=== PATIENT | female | born 1950 | race Caucasian/White ===

== ENCOUNTER 2018-06-01 16:32 | Observation (INO) | payer OTHER ==
[2018-06-01 16:59] VITALS: BMI 32.9
--- NOTE | 2018-06-01 17:37 | PDOC ---
History of Present Illness - General Chief Complaint: Weakness Stated Complaint: WEAKNESS DIZZINESS Time Seen by Provider: 06/01/18 17:35 - History of Present Illness Initial Comments: 06/01/18 17:37 Ms. Ojeda is a 67 yo female w/ pmh of HTN, HLD, Bipolar Disorder, and DM who presents for evaluation of increasing weakness and dizziness that resulted in a fall earlier today. Per family who is with her she was caught by a family member and did not hit her head or lose consciousness. Patient currently at baseline however family replies she is often forgetful / confused. Patient reports she is often dizzy however cannot expand upon this statement. Has been found to have lithium toxicity in the past; now on different medication for Bipolar Disorder however unknown what medication. The patient denies chest pain, shortness of breath, and headache. Denies fever, chills, nausea, vomit, diarrhea and constipation. Denies dysuria, frequency, urgency and hematuria. Past History - Past Medical History Allergies/Adverse Reactions: Allergies Allergy/AdvReac Type Severity Reaction Status Date / Time No Known Allergies Allergy Verified 01/25/15 12:35 Home Medications: Ambulatory Orders [place] Carbonate [Eskalith -] 600 mg PO HS 01/25/15 Losartan Potassium 100 mg PO DAILY 01/25/15 Simvastatin [Zocor -] 40 mg PO HS 01/25/15 metFORMIN HCL [Glucophage] 1,000 mg PO DAILY 01/25/15 COPD: No Diabetes: Yes - Suicide/Smoking/Psychosocial Hx Smoking History: Never smoked Have you smoked in the past 12 months: No Information on smoking cessation initiated: No Hx Alcohol Use: No Drug/Substance Use Hx: No Review of Systems - Review of Systems Comments:: 06/01/18 17:37 GENERAL/CONSTITUTIONAL: +Generalized weakness with dizziness as described. No fever or chills. HEAD, EYES, EARS, NOSE AND THROAT: No change in vision. No ear pain or discharge. No sore throat. CARDIOVASCULAR: No chest pain or shortness of breath RESPIRATORY: No cough, wheezing, or hemoptysis. GASTROINTESTINAL: No nausea, vomiting, diarrhea or constipation. GENITOURINARY: No dysuria, frequency, or change in urination. MUSCULOSKELETAL: No joint or muscle swelling or pain. No neck or back pain. SKIN: No rash NEUROLOGIC: No headache, vertigo, or loss of consciousness. ENDOCRINE: No increased thirst. No abnormal weight change HEMATOLOGIC/LYMPHATIC: No anemia, easy bleeding, or history of blood clots. ALLERGIC/IMMUNOLOGIC: No hives or skin allergy. *Physical Exam - Vital Signs Last Vital Signs Temp Pulse Resp BP Pulse Ox 98.9 F 81 18 150/71 96 06/01/18 16:57 06/01/18 16:57 06/01/18 16:57 06/01/18 16:57 06/01/18 16:57 - Physical Exam Comments: 06/01/18 17:38 GENERAL: Awake, alert, and fully oriented, in no acute distress HEAD: No signs of trauma, normocephalic, atraumatic EYES: PERRLA, EOMI, sclera anicteric, conjunctiva clear ENT: Auricles normal inspection, hearing grossly normal, nares patent, oropharynx clear without exudates. Moist mucosa NECK: Normal ROM, supple, no lymphadenopathy, JVD, or masses LUNGS: No distress, speaks full sentences, clear to auscultation bilaterally HEART: Regular rate and rhythm, normal S1 and S2, no murmurs, rubs or gallops, peripheral pulses normal and equal bilaterally. ABDOMEN: Soft, nontender, normoactive bowel sounds. No guarding, no rebound. No masses EXTREMITIES: Normal inspection, Normal range of motion, no edema. No clubbing or cyanosis. NEUROLOGICAL: Cranial nerves II through XII grossly intact. Normal speech, normal gait, no focal sensorimotor deficits SKIN: Warm, Dry, normal turgor, no rashes or lesions noted. Moderate Sedation - Procedure Monitoring Vital Signs: Procedure Monitoring Vital Signs Temperature 98.9 F 06/01/18 16:57 Pulse Rate 81 06/01/18 16:57 Respiratory Rate 18 06/01/18 16:57 Blood Pressure 150/71 06/01/18 16:57 O2 Sat by Pulse Oximetry (%) 96 06/01/18 16:57 ED Treatment Course - LABORATORY CBC & Chemistry Diagram: 06/01/18 18:47 06/01/18 18:47 Medical Decision Making - Medical Decision Making 06/01/18 18:26 Ms. Ojeda is a 67 yo female w/ pmh as described who presents for evaluation of chronic worsening weakness / dizziness with recent fall. Workup started with EKG/cardiac labs/infectious labs/electrolyte analysis/chest XR and head CT to r/ o acute process. 06/01/18 18:50 CXR negative for acute process. Further workup pending. Patient signed out to Dr. Valle for further evaluation. *DC/Admit/Observation/Transfer Diagnosis at time of Disposition: Weakness, Dizziness - Referrals Referrals: Richie Aviles [Primary Care Provider] - - Patient Instructions - Post Discharge Activity
[2018-06-01 19:09] LABS: BASO % 0.5 % (0-2.0); EOS % 1.6 % (0-4.5); HEMATOCRIT 42.6 % (32.4-45.2); HEMOGLOBIN 14.8 GM/dL (10.7-15.3); LYMPH % 16.2 % (8-40); MCH 31.1 pg (25.7-33.7); MCHC 34.8 g/dl (32.0-36.0); MEAN CELL VOLUME 89.2 fl (80-96); NEUT % 72.7 % (42.8-82.8); PLATELET COUNT 185 K/MM3 (134-434); RBC 4.78 M/mm3 (3.60-5.2); RDW 13.8 % (11.6-15.6); WHITE BLOOD COUNT 6.7 K/mm3 (4.0-10.0)
[2018-06-01 19:27] LABS: ALBUMIN 3.7 g/dl (3.4-5.0); ALK PHOS 90 U/L (45-117); ANION GAP 10 MMOL/L (8-16); BILIRUBIN,TOTAL 0.5 mg/dL (0.2-1); BLOOD UREA NITROGEN 28 mg/dL (7-18); CALCIUM 9.2 mg/dL (8.5-10.1); CHLORIDE 104 mmol/L (98-107); CO2 23 mmol/L (21-32); CREATININE 1.2 mg/dL (0.55-1.3); GLUCOSE,RANDOM 269 mg/dL (74-106); POTASSIUM 3.8 mmol/L (3.5-5.1); SGOT/AST 57 U/L (15-37); SGPT/ALT 72 U/L (13-61); SODIUM 137 mmol/L (136-145); TOT PROT 7.8 g/dl (6.4-8.2)
--- NOTE | 2018-06-01 20:29 | PDOC ---
Attending Attestation - [facility] [employer] [facility] HPI: 06/01/18 20:50 The patient is a 67 year old female with a significant past medical history of hypertension, hyperlipidemia, and bipolar disorder who presents to the emergency department with weakness since earlier today. The patient reports that she has been experiencing increased weakness and dizziness s/p a fall earlier today. As per the patient's family at bedside, the patient was caught before she hit the floor and denies any loc or head injury. The patient denies any other symptoms. As per family the patient was recently put on new medication for her bipolar disorder. - Physicial Exam PE: 06/01/18 20:50 GENERAL: Well developed, well nourished. Awake and alert. No acute distress. HEENT:(+)hard of hearing. Normocephalic, atraumatic. PERRLA, EOMI. No conjunctival pallor. Sclera are non- icteric. Moist mucous membranes. Oropharynx is clear. NECK: Supple. Full ROM. No JVD. Carotid pulses 2+ and symmetric, without bruits. No thyromegaly. No lymphadenopathy. CARDIOVASCULAR: Regular rate and rhythm. No murmurs, rubs, or gallops. Distal pulses are 2+ and symmetric. PULMONARY: No evidence of respiratory distress. Lungs clear to auscultation bilaterally. No wheezing, rales or rhonchi. ABDOMINAL:(+)turbulent belly Soft. Non-tender. Non-distended. No rebound or guarding. No organomegaly. Normoactive bowel sounds. MUSCULOSKELETAL Normal range of motion at all joints. No bony deformities or tenderness. No CVA tenderness. EXTREMITIES: (+)excoriation of bilateral forarms and lower legs. No cyanosis. No clubbing. No edema. No calf tenderness. SKIN: Warm and dry. Normal capillary refill. No rashes. No jaundice. NEUROLOGICAL: (+)delayed response to questions. Alert, awake, appropriate. Cranial nerves 2-12 intact. No deficits to light touch and temperature in face, upper extremities and lower extremities. No motor deficits in the in face, upper extremities and lower extremities. Normoreflexic in the upper and lower extremities. Normal speech. Toes are down- going bilaterally. PSYCHIATRIC: Cooperative. Good eye contact. Appropriate mood and affect. Documentation prepared by Tameka Ponce, acting as medical coding auditor for Britta Hicks MD. <Tameka Ponce - Last Filed: 06/01/18 20:50> - Resident Resident Name: Sammy Sutton - ED Attending Attestation I have performed the following: I have examined & evaluated the patient, The case was reviewed & discussed with the resident, I agree w/resident's findings & plan, Exceptions are as noted - Medical Decision Making 06/01/18 22:08 pt being admitted for near syncope ct scan head no acute intracranial pathology neg trop pt states she feels weak but denies any chest pain,abd pain,fever,chills pt admitted to telemetry <Britta Hicks - Last Filed: 06/01/18 22:09>
[2018-06-01] MEDS ORDERED: ALBUTEROL SO4 8 GM HFA INHALER IH PRN (21:20)
[2018-06-01] MEDS ORDERED: DOCUSATE SODIUM 100 MG CAPSULE (FP) PO PRN (21:20)
--- NOTE | 2018-06-01 21:26 | HP ---
CHIEF COMPLAINT: weakness PCP: Dr. Aviles HISTORY OF PRESENT ILLNESS: 67 y/o F with PMH HTN, HLD, bipolar disorder, DM, who presented to the ED for chronic weakness, exacerbated over the last few months. States that she has had chronic gait instability ever since 2014, when she was dx with [place] toxicity. At that time, she had come to [facility] ED with ataxia and slurred speech and was found to have a lithium level that increased from 0.9 to 1.4. [place] was d/c and she was started on depakote for her bipolar disorder. States that in the interim, she saw a neurologist (Dr. Link) and had a brain MRI done, however she does not know the result. Today, pt has returned to the ED d/t instance today of increased weakness while ambulating. She states that she was in her home ambulating down the hallway when she felt unsteady, having to lean on her daughter. Mentions that she ambulated to the bathroom with her assistance, however when she reached it, her daughter needed to "let her down slowly" to sit on the bathroom floor because she couldn't ambulate any further. No syncopal episode. Denies witnessed sz like activity, palpitations, post- ictal confusion, head trauma, LOC, or chest pain/dizziness. Never fell. Denies KING, fever, chills, SOB, chest pain. She has had urinary incontinence over the past year, and had a urological procedure done for this reason - states she had implants placed in her backside. ER course was notable for: (1) EKG: RBBB, PACs - no acute change from prior (2) (3) Recent Travel: denies PAST MEDICAL HISTORY: as above PAST SURGICAL HISTORY: R ankle repair Social History: used to work as a home health aid Smoking: denies Alcohol: denies Drugs: denies Family History: father- DM Allergies No Known Allergies Allergy (Verified 01/25/15 12:35) HOME MEDICATIONS: Home Medications Medication Instructions Recorded Losartan Potassium 50 mg PO DAILY 01/25/15 Simvastatin [Zocor -] 40 mg PO HS 01/25/15 metFORMIN HCL [Glucophage] 1,000 mg PO HS 01/25/15 Albuterol Sulfate Inhaler - 2 inh PO Q4H PRN 06/01/18 [Ventolin Hfa Inhaler -] Divalproex [Depakote -] 1,000 mg PO HS 06/01/18 Docusate Sodium 100 mg PO DAILY PRN 06/01/18 Glipizide Xl [Glucotrol Xl -] 5 mg PO DAILY 06/01/18 Meds have been verified by 's list REVIEW OF SYSTEMS CONSTITUTIONAL: +weakness Absent: fever, chills, diaphoresis, generalized weakness, malaise, loss of appetite, weight change HEENT: Absent: rhinorrhea, nasal congestion, throat pain, throat swelling, difficulty swallowing, mouth swelling, ear pain, eye pain, visual changes CARDIOVASCULAR: Absent: chest pain, syncope, palpitations, irregular heart rate, lightheadedness , peripheral edema RESPIRATORY: Absent: cough, shortness of breath, dyspnea with exertion, orthopnea, wheezing, stridor, hemoptysis GASTROINTESTINAL: Absent: abdominal pain, abdominal distension, nausea, vomiting, diarrhea, constipation, melena, hematochezia GENITOURINARY: +urinary incontinence Absent: dysuria, frequency, urgency, hesitancy, hematuria, flank pain, genital pain MUSCULOSKELETAL: Absent: myalgia, arthralgia, joint swelling, back pain, neck pain SKIN: Absent: rash, itching, pallor HEMATOLOGIC/IMMUNOLOGIC: Absent: easy bleeding, easy bruising, lymphadenopathy, frequent infections ENDOCRINE: Absent: unexplained weight gain, unexplained weight loss, heat intolerance, cold intolerance NEUROLOGIC: Absent: headache, focal weakness or paresthesias, dizziness, unsteady gait, seizure, mental status changes, bladder or bowel incontinence PSYCHIATRIC: Absent: anxiety, depression, suicidal or homicidal ideation, hallucinations. PHYSICAL EXAMINATION Vital Signs - 24 hr 06/01/18 16:57 Temperature 98.9 F Pulse Rate 81 Respiratory 18 Rate Blood Pressure 150/71 O2 Sat by Pulse 96 Oximetry (%) GENERAL: Lying down comfortably in bed. Awake, alert, and fully oriented, in no acute distress. HEAD: Normal with no signs of trauma. +L facial droop; chronic EYES: Pupils equal, round and reactive to light, extraocular movements intact, sclera anicteric, conjunctiva clear. No lid lag. EARS, NOSE, THROAT: Ears normal, nares patent, oropharynx clear without exudates. Moist mucous membranes. NECK: Normal range of motion, supple LUNGS: Breath sounds equal, clear to auscultation bilaterally. No wheezes, and no crackles. No accessory muscle use. HEART: Regular rate and rhythm, normal S1 and S2 without murmur, rub or gallop. ABDOMEN: Soft, obese, nontender, not distended, normoactive bowel sounds, no guarding UPPER EXTREMITIES: 2+ pulses, warm, well-perfused. +scratches LOWER EXTREMITIES: 2+ pt pulses, warm, well-perfused. +scratches NEUROLOGICAL: Cranial nerves II-XII intact. +chronically delayed speech, difficulty with articulation. 4/5 motor strength in upper and lower extremities. sensation intact. no dysmetria, no dysdiadokinesia. +upper extremities - w/tremor PSYCHIATRIC: Cooperative. Good eye contact. SKIN: Warm, dry Laboratory Results - last 24 hr 06/01/18 06/01/18 18:47 18:47 WBC 6.7 RBC 4.78 Hgb 14.8 Hct 42.6 MCV 89.2 MCH 31.1 MCHC 34.8 RDW 13.8 Plt Count 185 D MPV 9.0 Absolute Neuts (auto) 4.8 Neutrophils % 72.7 Lymphocytes % 16.2 Monocytes % 9.0 D Eosinophils % 1.6 Basophils % 0.5 Nucleated RBC % 0 Sodium 137 Potassium 3.8 Chloride 104 Carbon Dioxide 23 Anion Gap 10 BUN 28 H Creatinine 1.2 Creat Clearance w eGFR 45.09 Random Glucose 269 H Calcium 9.2 Total Bilirubin 0.5 AST 57 H ALT 72 H Alkaline Phosphatase 90 Creatine Kinase 60 Troponin I < 0.02 Total Protein 7.8 Albumin 3.7 TESTS EKG: with PAC's, RBBB. no acute change from prior Head CT: bilateral frontoparietal cerebral atrophy mildly increased in comparison to prior CT of 2014. corresponding mildly increased ventricular dilation which currently appears to be moderate ASSESSMENT/PLAN: 67 y/o F with PMH HTN, HLD, bipolar disorder, DM, who presented to the ED for chronic weakness, exacerbated over the last few months. #Generalized weakness, ataxia -appears to be chronic issue. has had brain MRI in past, however does not know the result. -would recommend retrieving past brain MRI result- Dr. Link [place] on [facility] -may be 2/2 normal pressure hydrocephalus as with increased ventricular dilation from past, urinary incontinence, ataxia -cont to hold lithium; had past lithium toxicity which caused these sx. has been on depakote -neuro consult; Dr. Lauren -reversible causes: f/u TSH, b12, folate, rpr, ua -physical therapy #transaminitis -no evident etiology, will need to investigate. hep serologies f/u -hold lipitor -f/u CMP, abdom sono #HTN- uncontrolled -c/w losartan #HLD -hold lipitor d/t transaminitis #Type 2 DM -ISS, BGM ACHS -hold metformin, glipizide. can restart on d/c -f/u A1c #bipolar disorder -c/w depakote #f/e/n encourage PO intake; no need for IVF at this time continue to follow lytes diabetic, sodium controlled diet #ppx DVT: SCD's, expect short stay #dispo observation. will be seen by neurology, may be able to d/c tomorrow once outpt plan developed and seen by PT Visit type - Emergency Visit Emergency Visit: Yes ED Registration Date: 06/01/18 Care time: The patient presented to the Emergency Department on the above date and was hospitalized for further evaluation of their emergent condition. - New Patient This patient is new to me today: Yes Date on this admission: 06/02/18 - Critical Care Critical Care patient: No
--- NOTE | 2018-06-01 21:33 | PN ---
Teaching Attending Note Name of Resident: Nataliya Ni ATTENDING PHYSICIAN STATEMENT I saw and evaluated the patient. I reviewed the resident's note and discussed the case with the resident. I agree with the resident's findings and plan as documented. SUBJECTIVE: This is a 67 year old woman with a history of HTN, hyperlipidemia, type 2 DM, bipolar disorder who comes to the ED complaining of worsening weakness and difficulty walking. She says that today while walking in the hallway, she became unsteady and thought she was going to fall. She was assisted by her daughter and she says she lowered herself to the floor. She denies loss of consciousness. In 2014, she had difficulty walking and slurred speech which was attributed to lithium toxicity. Bibo was changed to Depakote at that time. She also reports that she "leaks urine" for the past year. She has had an MRI of the brain as part of the workup for her symptoms but she is unaware of the results. OBJECTIVE: Vital Signs Period Temp Pulse Resp BP Sys/[place] Pulse Ox Last 24 Hr 98.9 F 81 18 150/71 96 HEART: S1S2, RRR, PACs LUNGS: Clear ABDOMEN: Soft, non-tender, non-distended, normal BS EXTREMITIES: No edema NEUROLOGICAL: Alert, oriented, slow to respond, strength 4/5 in all extremities , DTRs symmetric, sensation intact, no pronator drift, no dysdiadochokinesis Laboratory Tests 06/01/18 06/01/18 18:47 18:47 WBC 6.7 RBC 4.78 Hgb 14.8 Hct 42.6 MCV 89.2 MCH 31.1 MCHC 34.8 RDW 13.8 Plt Count 185 D MPV 9.0 Absolute Neuts (auto) 4.8 Neutrophils % 72.7 Lymphocytes % 16.2 Monocytes % 9.0 D Eosinophils % 1.6 Basophils % 0.5 Nucleated RBC % 0 Sodium 137 Potassium 3.8 Chloride 104 Carbon Dioxide 23 Anion Gap 10 BUN 28 H Creatinine 1.2 Creat Clearance w eGFR 45.09 Random Glucose 269 H Calcium 9.2 Total Bilirubin 0.5 AST 57 H ALT 72 H Alkaline Phosphatase 90 Creatine Kinase 60 Troponin I < 0.02 Total Protein 7.8 Albumin 3.7 Home Medications Medication Instructions Recorded Losartan Potassium 50 mg PO DAILY 01/25/15 Simvastatin [Zocor -] 40 mg PO HS 01/25/15 metFORMIN HCL [Glucophage] 1,000 mg PO HS 01/25/15 Albuterol Sulfate Inhaler - 2 inh PO Q4H PRN 06/01/18 [Ventolin Hfa Inhaler -] Divalproex [Depakote -] 1,000 mg PO HS 06/01/18 Docusate Sodium 100 mg PO DAILY PRN 06/01/18 Glipizide Xl [Glucotrol Xl -] 5 mg PO DAILY 06/01/18 ASSESSMENT AND PLAN: This is a 67 year old woman with a history of HTN, hyperlipidemia, type 2 DM, bipolar disorder who presented to the ED with weakness and difficulty walking. 1. Weakness with unsteady gait, confusion, possible urinary incontinence - Place in observation - CT shows bilateral frontoparietal cerebral atrophy with moderate ventricular dilatation - Recently had MRI - will obtain results - Check TSH, B12, folate, RPR, UA - Neuro consult - PT eval 2. Hepatic transaminitis - Check hepatitis panel, RUQ US - Hold Zocor - Monitor LFTs 3. HTN - Continue Cozaar 4. Hyperlipidemia - Hold Zocor secondary to transaminitis 5. Type 2 DM - Hold metformin, glipizide - Fingersticks with Novolog sliding scale - Check HbA1c 6. Bipolar disorder - Continue Depakote
[2018-06-01] MEDS ORDERED: ATORVASTATIN CA 10 MG TABLET (FP) ONE (21:58)
[2018-06-01] MEDS ORDERED: DIVALPROEX SODIUM 500 MG TABLET E.C. ONE (21:58)
[2018-06-01] MEDS ORDERED: INSULIN (NOVOLOG) ASPART 100 UNITS/ML 10ML VIAL ONE (21:58)
[2018-06-01] MEDS ORDERED: ATORVASTATIN CA 20 MG TABLET (FP) PO SCH (22:00)
[2018-06-01] MEDS: DIVALPROEX SODIUM 500 MG TABLET E.C. PO SCH (22:02)
[2018-06-01] MEDS: INSULIN SLIDING SCALE (NOVOLOG) 1 VIAL SQ SCH (22:03)
[2018-06-02 05:40] LABS: URINE APPEARANCE SLCLOUDY; URINE BILIRUBIN NEGATIVE (<2.0 mg/dL); URINE COLOR YELLOW; URINE GLUCOSE (UA) 3+ (NEGATIVE); URINE KETONE TRACE (NEGATIVE); URINE LEUK ESTERASE 3+ (NEGATIVE); URINE NITRITE NEGATIVE (NEGATIVE); URINE PROTEIN 1+ (NEGATIVE); URINE UROBILINOGEN NEGATIVE mg/dL (0.2-1.0)
[2018-06-02 05:43] LABS: EPI CELLS MANY /HPF (FEW); URINE BACTERIA RARE /hpf (NONE SEEN); URINE MUCUS RARE
[2018-06-02 05:51] LABS: BASO % 0.8 % (0-2.0); HEMATOCRIT 40.1 % (32.4-45.2); LYMPH % 38.7 % (8-40); MCH 31.5 pg (25.7-33.7); MEAN CELL VOLUME 89.9 fl (80-96); MONO % 9.2 % (3.8-10.2); NEUT % 47.3 % (42.8-82.8); PLATELET COUNT 150 K/MM3 (134-434); RBC 4.46 M/mm3 (3.60-5.2); RDW 14.1 % (11.6-15.6)
[2018-06-02 06:18] LABS: ALBUMIN 3.4 g/dl (3.4-5.0); ALK PHOS 81 U/L (45-117); ANION GAP 10 MMOL/L (8-16); BILIRUBIN,TOTAL 0.6 mg/dL (0.2-1); BLOOD UREA NITROGEN 25 mg/dL (7-18); CALCIUM 9.1 mg/dL (8.5-10.1); CHLORIDE 105 mmol/L (98-107); CO2 22 mmol/L (21-32); GLUCOSE,RANDOM 210 mg/dL (74-106); MAGNESIUM 1.8 mg/dL (1.8-2.4); PHOSPHOROUS 3.3 mg/dL (2.5-4.9); POTASSIUM 3.8 mmol/L (3.5-5.1); SGOT/AST 40 U/L (15-37); SGPT/ALT 58 U/L (13-61); SODIUM 138 mmol/L (136-145); TOT PROT 7.1 g/dl (6.4-8.2)
[2018-06-02] MEDS ORDERED: INSULIN (NOVOLOG) ASPART 100 UNITS/ML 10ML VIAL ONE ×3 (06:44→18:00)
[2018-06-02] MEDS: INSULIN SLIDING SCALE (NOVOLOG) 1 VIAL SQ SCH ×4 (06:55→22:35)
--- NOTE | 2018-06-02 09:50 | CON.NEURO ---
Consult - History of Present Illness History of Present Illness: 67 year old woman with a history of HTN, hyperlipidemia, type 2 DM, bipolar disorder who comes to the ED complaining of worsening weakness and difficulty walking. She says that today while walking in the hallway, she became unsteady and thought she was going to fall. She was assisted by her daughter and she says she lowered herself to the floor. She denies loss of consciousness. In 2014 , she had difficulty walking and slurred speech which was attributed to lithium toxicity. Spiro was changed to Depakote at that time. She also reports that she "leaks urine" for the past year. She has had an MRI of the brain as part of the workup for her symptoms but she is unaware of the results. spoke to son, walking described as shuffling; started on LATUDA recently --thought pt unaware when. sugars not fully controlled, UA +, TSH NL, LFTs elevated CT HD : ventricular dilattaion (unable tro view scan on PACS) - Alcohol/Substance Use Hx Alcohol Use: No - Smoking History Smoking history: Never smoked Have you smoked in the past 12 months: No Home Medications - Allergies Allergies/Adverse Reactions: Allergies Allergy/AdvReac Type Severity Reaction Status Date / Time No Known Allergies Allergy Verified 01/25/15 12:35 - Home Medications Home Medications: Ambulatory Orders Losartan Potassium 50 mg PO DAILY 01/25/15 Simvastatin [Zocor -] 40 mg PO HS 01/25/15 metFORMIN HCL [Glucophage] 1,000 mg PO HS 01/25/15 Albuterol Sulfate Inhaler - [Ventolin Hfa Inhaler -] 2 inh PO Q4H PRN 06/01/18 Divalproex [Depakote -] 1,000 mg PO HS 06/01/18 Docusate Sodium 100 mg PO DAILY PRN 06/01/18 Glipizide Xl [Glucotrol Xl -] 5 mg PO DAILY 06/01/18 Physical Exam-Neuro Vital Signs: Vital Signs Temperature 98.1 F 06/02/18 05:56 Pulse Rate 65 06/02/18 07:30 Respiratory Rate 18 06/02/18 07:30 Blood Pressure 133/67 06/02/18 07:30 O2 Sat by Pulse Oximetry (%) 97 06/02/18 07:30 Labs: CBC, BMP 06/02/18 05:18 06/02/18 05:18 - Neuro Exam Level Of Consciousness: Yes: Alert (awake, flat affect and somewhat slow to respond, [place], no facial, motor 5/5, no tremor , no sig inc tone in LE , plantars dwn, gait shffuling, magnetic ) Problem List - Problems (1) Gait abnormality Code(s): R26.9 - UNSPECIFIED ABNORMALITIES OF GAIT AND MOBILITY (2) Hydrocephalus Code(s): G91.9 - HYDROCEPHALUS, UNSPECIFIED (3) Weakness Code(s): R53.1 - WEAKNESS (4) UTI (urinary tract infection) Code(s): N39.0 - URINARY TRACT INFECTION, SITE NOT SPECIFIED Assessment/Plan 67 year old woman with a history of HTN, hyperlipidemia, type 2 DM, bipolar disorder who comes to the ED complaining of worsening weakness and difficulty walking. She says that today while walking in the hallway, she became unsteady and thought she was going to fall. She was assisted by her daughter and she says she lowered herself to the floor. She denies loss of consciousness. In 2014 , she had difficulty walking and slurred speech which was attributed to lithium toxicity. Spiro was changed to Depakote at that time. She also reports that she "leaks urine" for the past year. She has had an MRI of the brain as part of the workup for her symptoms but she is unaware of the results. sugars not fully controlled, UA +, TSH NL, LFTs elevated CT HD : ventricular dilatation (unable tro view scan on PACS) AP : signs and Sx suggestive of NPH, cogntive issues, gait ABNL and incontence, may also be decompensation from DM neuropathy and UTI DM Control ABX for UTI check MRI BRAIN will need LP and re-eval pre and post tap from rehab -gait reassessment will try in AM NEUROSURGERY consult thereafter PSYCH FU PRN FU LFTS issue -PMD STEVE [facility] DR ADAMS
--- NOTE | 2018-06-02 09:56 | EKG ---
Test Reason : Blood Pressure : / mmHG Vent. Rate : 082 BPM Atrial Rate : 082 BPM P-R Int : 170 ms QRS Dur : 118 ms QT Int : 414 ms P-R-T Axes : 064 -75 074 degrees QTc Int : 483 ms SINUS RHYTHM WITH PREMATURE ATRIAL COMPLEXES LEFT AXIS DEVIATION RIGHT BUNDLE BRANCH BLOCK INFERIOR INFARCT (CITED ON OR BEFORE 25-JAN-2015) CANNOT RULE OUT ANTERIOR INFARCT (CITED ON OR BEFORE 25-JAN-2015) ABNORMAL ECG WHEN COMPARED WITH ECG OF 25-JAN-2015 13:23, PREMATURE ATRIAL COMPLEXES ARE NOW PRESENT VENT. RATE HAS INCREASED BY 35 BPM RIGHT BUNDLE BRANCH BLOCK IS NOW PRESENT Confirmed by BEN HAWKINS, LENNY ([id number]) on 06/02/2018 9:56:01 AM Referred By: Confirmed By:LENNY CONTRERAS MD
[2018-06-02] MEDS: LOSARTAN POTASSIUM 50 MG TABLET (FP) PO SCH (10:49)
--- NOTE | 2018-06-02 15:05 | PN ---
Physical Exam: SUBJECTIVE: Patient seen and examined at bedside this morning. She endorses weakness, however denies any acute complaints today. Denies subjective fevers, chills, shortness of breath, chest pain, palpitations, abdominal pain, nausea, vomiting. OBJECTIVE: Vital Signs Period Temp Pulse Resp BP Sys/Vill[place] Pulse Ox Last 24 Hr 98.1 F-98.9 F 56-81 18-18 133-150/64-76 95-97 GENERAL: The patient is awake, alert, and oriented to person, place, and time in no acute distress. HEAD: Normocephalic, atraumatic. EYES: PERRL, extraocular movements intact, sclera anicteric. ENT: Oropharynx clear without exudates, moist mucous membranes. NECK: Supple without lymphadenopathy LUNGS: Breath sounds equal, clear to auscultation bilaterally, no wheezes, no crackles, no accessory muscle use. HEART: Regular rate and rhythm, S1, S2 without murmur, rub or gallop. ABDOMEN: Soft, nontender to light and deep palpation X4 quadrants, nondistended. Normoactive bowel sounds. No guarding, no rebound tenderness. EXTREMITIES: 2+ radial and dorsalis pedis pulses B/L, warm, well-perfused, no edema. NEUROLOGICAL: Cranial nerves II through XII grossly intact. Normal speech. PSYCH: Flat affect, and slow response to conversation. SKIN: Warm, dry. Laboratory Results - last 24 hr 06/01/18 06/01/18 06/01/18 10:15 18:47 18:47 WBC 6.7 RBC 4.78 Hgb 14.8 Hct 42.6 MCV 89.2 MCH 31.1 MCHC 34.8 RDW 13.8 Plt Count 185 D MPV 9.0 Absolute Neuts (auto) 4.8 Neutrophils % 72.7 Lymphocytes % 16.2 Monocytes % 9.0 D Eosinophils % 1.6 Basophils % 0.5 Nucleated RBC % 0 Sodium 137 Potassium 3.8 Chloride 104 Carbon Dioxide 23 Anion Gap 10 BUN 28 H Creatinine 1.2 Creat Clearance w eGFR 45.09 Random Glucose 269 H Hemoglobin A1c % Calcium 9.2 Phosphorus Magnesium Total Bilirubin 0.5 AST 57 H ALT 72 H Alkaline Phosphatase 90 Creatine Kinase 60 Troponin I < 0.02 Total Protein 7.8 Albumin 3.7 Vitamin B12 652 Serum Folate 19 H TSH 1.90 Urine Color Urine Appearance Urine pH Ur Specific [place] Urine Protein Urine Glucose (UA) Urine Ketones Urine Blood Urine Nitrite Urine Bilirubin Urine Urobilinogen Ur Leukocyte Esterase Urine WBC (Auto) Urine RBC (Auto) Ur Epithelial Cells Urine Bacteria Urine Mucus RPR Titer Nonreactive 06/01/18 06/02/18 06/02/18 18:47 05:18 05:18 WBC 6.0 RBC 4.46 Hgb 14.0 Hct 40.1 MCV 89.9 MCH 31.5 MCHC 35.0 RDW 14.1 Plt Count 150 MPV 8.0 D Absolute Neuts (auto) 2.8 Neutrophils % 47.3 D Lymphocytes % 38.7 D Monocytes % 9.2 Eosinophils % 4.0 D Basophils % 0.8 Nucleated RBC % 0 Sodium 138 Potassium 3.8 Chloride 105 Carbon Dioxide 22 Anion Gap 10 BUN 25 H Creatinine 1.0 Creat Clearance w eGFR 55.64 Random Glucose 210 H Hemoglobin A1c % 9.5 H Calcium 9.1 Phosphorus 3.3 Magnesium 1.8 Total Bilirubin 0.6 AST 40 H ALT 58 Alkaline Phosphatase 81 Creatine Kinase Troponin I Total Protein 7.1 Albumin 3.4 Vitamin B12 Serum Folate TSH Urine Color Urine Appearance Urine pH Ur Specific [place] Urine Protein Urine Glucose (UA) Urine Ketones Urine Blood Urine Nitrite Urine Bilirubin Urine Urobilinogen Ur Leukocyte Esterase Urine WBC (Auto) Urine RBC (Auto) Ur Epithelial Cells Urine Bacteria Urine Mucus RPR Titer 06/02/18 05:30 WBC RBC Hgb Hct MCV MCH MCHC RDW Plt Count MPV Absolute Neuts (auto) Neutrophils % Lymphocytes % Monocytes % Eosinophils % Basophils % Nucleated RBC % Sodium Potassium Chloride Carbon Dioxide Anion Gap BUN Creatinine Creat Clearance w eGFR Random Glucose Hemoglobin A1c % Calcium Phosphorus Magnesium Total Bilirubin AST ALT Alkaline Phosphatase Creatine Kinase Troponin I Total Protein Albumin Vitamin B12 Serum Folate TSH Urine Color Yellow Urine Appearance Slcloudy Urine pH 5.0 Ur Specific [place] 1.021 Urine Protein 1+ H Urine Glucose (UA) 3+ H Urine Ketones Trace H Urine Blood 1+ H Urine Nitrite Negative Urine Bilirubin Negative Urine Urobilinogen Negative Ur Leukocyte Esterase 3+ H Urine WBC (Auto) 31 Urine RBC (Auto) 31 Ur Epithelial Cells Many Urine Bacteria Rare Urine Mucus Rare RPR Titer Active Medications Generic Name Dose Route Start Last Admin Trade Name Freq PRN Reason Stop Dose Admin Albuterol Sulfate 2 puff 06/01/18 21:20 Ventolin Hfa Inhaler - IH Q4H PRN SHORT OF BREATH/WHEEZING Atorvastatin Calcium 20 mg 06/01/18 22:00 06/01/18 22:02 Lipitor - PO 20 mg HS ELIAZAR Administration Divalproex Sodium 1,000 mg 06/01/18 22:00 06/01/18 22:02 Depakote - PO 1,000 mg HS ELIAZAR Administration Docusate Sodium 100 mg 06/01/18 21:20 Colace - PO DAILY PRN CONSTIPATION Insulin Aspart 1 vial 06/01/18 22:00 06/02/18 11:01 Novolog Vial Sliding Scale - SQ 4 unit ACHS ELIAZAR Administration Protocol Losartan Potassium 50 mg 06/02/18 10:00 06/02/18 10:49 Cozaar - PO 50 mg DAILY ELIAZAR Administration ASSESSMENT/PLAN: Patient is a 67 year old female with history of hypertension, hyperlipidemia, bipolar disorder, noninsulin dependant diabetes mellitus, presents with generalized weakness. Pre-syncopal episode -Concern for normal pressure hydrocephalus as patient endorses shuffling gait, communication difficulties, and incontinence. -Folate, B12, TSH within normal limits. RPR negative -F/U MRI brain -F/U cardiac ECHO -LP tomorrow with Dr. Lauren -Physical therapy evaluation -Telemetry monitoring -Neurology consult (Dr. Lauren) appreciated Hypertension -Losartan 50mg PO daily Hyperlipidemia -Holding home Simvastatin 40mg PO daily, due to transaminitis Transaminitis -Trending down. Unclear etiology. -Follow Hepatitis serology studies. -Follow right upper quadrant ultrasound. Diabetes mellitus -Holding home metformin and glipizide -Insulin sliding scale ACHS -Fingerstick blood glucose monitoring ACHS Bipolar disorder -Depakote 1000mg PO daily UTI -Currently asymptomatic. Will follow cultures, before initiating treatment. FEN -No IV fluids indicated -Follow CMP -Diabetic, sodium controlled diet Prophylaxis -SCDs B/L lower extremities Disposition -Observation on Telemetry floor Visit type - Emergency Visit Emergency Visit: Yes ED Registration Date: 06/01/18 Care time: The patient presented to the Emergency Department on the above date and was hospitalized for further evaluation of their emergent condition. - New Patient This patient is new to me today: Yes Date on this admission: 06/02/18 - Critical Care Critical Care patient: No - Discharge Referral Referred to [facility] Med P.C.: No
--- NOTE | 2018-06-02 17:36 | PN ---
Teaching Attending Note Name of Resident: Oscar Collado ATTENDING PHYSICIAN STATEMENT I saw and evaluated the patient. I reviewed the resident's note and discussed the case with the resident. I agree with the resident's findings and plan as documented. SUBJECTIVE: Feels well now - no lightheadedness/CP/palpitations/SOB/cough/ sputum. Vague report of intermittent dysuria and urinary incontinence. OBJECTIVE: Afebrile, Hemodynamically Stable. Last Vital Signs Temp Pulse Resp BP Pulse Ox 98.1 F 65 18 140/64 96 06/02/18 05:56 06/02/18 11:03 06/02/18 11:03 06/02/18 11:03 06/02/18 11:03 HEENT - Atraumatic, Normocephalic. No pharyngeal erythema/exudate HEART: S1, S2, RRR LUNGS: Clear to auscultation. ABDOMEN: Soft, non-tender, non-distended, normal BS EXTREMITIES: No edema. No calf tenderness. NEUROLOGICAL: AAO x3. Hearing impaired. Mild decrease in power lower extremities. HALEY. EOMI. CN intact. Coordination intact. Laboratory Results - last 24 hr 06/01/18 06/01/18 06/01/18 10:15 18:47 18:47 WBC 6.7 RBC 4.78 Hgb 14.8 Hct 42.6 MCV 89.2 MCH 31.1 MCHC 34.8 RDW 13.8 Plt Count 185 D MPV 9.0 Absolute Neuts (auto) 4.8 Neutrophils % 72.7 Lymphocytes % 16.2 Monocytes % 9.0 D Eosinophils % 1.6 Basophils % 0.5 Nucleated RBC % 0 Sodium 137 Potassium 3.8 Chloride 104 Carbon Dioxide 23 Anion Gap 10 BUN 28 H Creatinine 1.2 Creat Clearance w eGFR 45.09 Random Glucose 269 H Hemoglobin A1c % Calcium 9.2 Phosphorus Magnesium Total Bilirubin 0.5 AST 57 H ALT 72 H Alkaline Phosphatase 90 Creatine Kinase 60 Troponin I < 0.02 Total Protein 7.8 Albumin 3.7 Vitamin B12 652 Serum Folate 19 H TSH 1.90 Urine Color Urine Appearance Urine pH Ur Specific [place] Urine Protein Urine Glucose (UA) Urine Ketones Urine Blood Urine Nitrite Urine Bilirubin Urine Urobilinogen Ur Leukocyte Esterase Urine WBC (Auto) Urine RBC (Auto) Ur Epithelial Cells Urine Bacteria Urine Mucus RPR Titer Nonreactive 06/01/18 06/02/18 06/02/18 18:47 05:18 05:18 WBC 6.0 RBC 4.46 Hgb 14.0 Hct 40.1 MCV 89.9 MCH 31.5 MCHC 35.0 RDW 14.1 Plt Count 150 MPV 8.0 D Absolute Neuts (auto) 2.8 Neutrophils % 47.3 D Lymphocytes % 38.7 D Monocytes % 9.2 Eosinophils % 4.0 D Basophils % 0.8 Nucleated RBC % 0 Sodium 138 Potassium 3.8 Chloride 105 Carbon Dioxide 22 Anion Gap 10 BUN 25 H Creatinine 1.0 Creat Clearance w eGFR 55.64 Random Glucose 210 H Hemoglobin A1c % 9.5 H Calcium 9.1 Phosphorus 3.3 Magnesium 1.8 Total Bilirubin 0.6 AST 40 H ALT 58 Alkaline Phosphatase 81 Creatine Kinase Troponin I Total Protein 7.1 Albumin 3.4 Vitamin B12 Serum Folate TSH Urine Color Urine Appearance Urine pH Ur Specific [place] Urine Protein Urine Glucose (UA) Urine Ketones Urine Blood Urine Nitrite Urine Bilirubin Urine Urobilinogen Ur Leukocyte Esterase Urine WBC (Auto) Urine RBC (Auto) Ur Epithelial Cells Urine Bacteria Urine Mucus RPR Titer 06/02/18 05:30 WBC RBC Hgb Hct MCV MCH MCHC RDW Plt Count MPV Absolute Neuts (auto) Neutrophils % Lymphocytes % Monocytes % Eosinophils % Basophils % Nucleated RBC % Sodium Potassium Chloride Carbon Dioxide Anion Gap BUN Creatinine Creat Clearance w eGFR Random Glucose Hemoglobin A1c % Calcium Phosphorus Magnesium Total Bilirubin AST ALT Alkaline Phosphatase Creatine Kinase Troponin I Total Protein Albumin Vitamin B12 Serum Folate TSH Urine Color Yellow Urine Appearance Slcloudy Urine pH 5.0 Ur Specific [place] 1.021 Urine Protein 1+ H Urine Glucose (UA) 3+ H Urine Ketones Trace H Urine Blood 1+ H Urine Nitrite Negative Urine Bilirubin Negative Urine Urobilinogen Negative Ur Leukocyte Esterase 3+ H Urine WBC (Auto) 31 Urine RBC (Auto) 31 Ur Epithelial Cells Many Urine Bacteria Rare Urine Mucus Rare RPR Titer Current Medications Generic Name Dose Route Start Last Admin Trade Name Freq PRN Reason Stop Dose Admin Albuterol Sulfate 2 puff 06/01/18 21:20 Ventolin Hfa Inhaler - IH Q4H PRN SHORT OF BREATH/WHEEZING Atorvastatin Calcium 20 mg 06/01/18 22:00 06/01/18 22:02 Lipitor - PO 20 mg HS ELIAZAR Administration Divalproex Sodium 1,000 mg 06/01/18 22:00 06/01/18 22:02 Depakote - PO 1,000 mg HS ELIAZAR Administration Docusate Sodium 100 mg 06/01/18 21:20 Colace - PO DAILY PRN CONSTIPATION Insulin Aspart 1 vial 06/01/18 22:00 06/02/18 11:01 Novolog Vial Sliding Scale - SQ 4 unit ACHS ELIAZAR Administration Protocol Losartan Potassium 50 mg 06/02/18 10:00 06/02/18 10:49 Cozaar - PO 50 mg DAILY ELIAZAR Administration ASSESSMENT AND PLAN: 67 year old hearing impaired, female history of HTN, HLD, DM 2, bipolar disorder who presented to the ED with weakness and difficulty ambulating with a near fall event. She was lowered to the floor by her daughter. Denies any lightheadedness/dizziness/CP/palpitations. Family also reports intermittent confusion. 1. Weakness with unsteady gait, intermittent confusion, urinary incontinence CT Head - mildly dilated ventricles. Evaluated by Neuro - presentation suspicious for Normal pressure hydrocephalus. MRI Brain pending. Possible LP tomorrow. B12/Folate wnl. RPR neg. TSH normal. UA pos for LE - Urine Cx pending. Echo pending. PT eval requested. 2. Hepatic Transaminitis RUQ US - Hepatomegaly/Fatty infiltrate vs hepatocellular disease. Will hold statin Hepatitis panel pending. 3. HTN - Continue Cozaar 4. Hyperlipidemia - Statin held due to elevated transaminases. 5. DM 2 - Uncontrolled, A1C 9.5. Continue Novolog as per sliding scale. Metformin/Glipizide held. 6. Bipolar disorder - Continue Depakote DVT Px - SCDs. Will hold Heparin pending possible LP.
[2018-06-02] MEDS: DIVALPROEX SODIUM 500 MG TABLET E.C. PO SCH (22:35)
[2018-06-03] MEDS: INSULIN SLIDING SCALE (NOVOLOG) 1 VIAL SQ SCH ×4 (06:10→21:49)
[2018-06-03 06:17] LABS: HEMOGLOBIN 14.4 GM/dL (10.7-15.3); MCH 31.3 pg (25.7-33.7); MCHC 35.1 g/dl (32.0-36.0); MEAN CELL VOLUME 89.3 fl (80-96); MEAN PLT VOLUME 8.4 fl (7.5-11.1); PLATELET COUNT 167 K/MM3 (134-434); RBC 4.59 M/mm3 (3.60-5.2); RDW 13.7 % (11.6-15.6); WHITE BLOOD COUNT 6.6 K/mm3 (4.0-10.0)
--- NOTE | 2018-06-03 07:30 | PN ---
Physical Exam: SUBJECTIVE: Patient seen and examined with at bedside this morning. She appears more sleepy today. Patient does not endorse acute complaints today. OBJECTIVE: Vital Signs Period Temp Pulse Resp BP Sys/[place] Pulse Ox Last 24 Hr 97.3 F-98.1 F 65-87 18-20 112-152/64-82 95-97 GENERAL: The patient is awake, alert, and oriented to person, place, and time in no acute distress. HEAD: Normocephalic, atraumatic. EYES: PERRL, extraocular movements intact, sclera anicteric. ENT: Oropharynx clear without exudates, moist mucous membranes. NECK: Supple without lymphadenopathy LUNGS: Breath sounds equal, clear to auscultation bilaterally, no wheezes, no crackles, no accessory muscle use. HEART: Regular rate and rhythm, S1, S2 without murmur, rub or gallop. ABDOMEN: Soft, nontender to light and deep palpation X4 quadrants, nondistended. Normoactive bowel sounds. No guarding, no rebound tenderness. EXTREMITIES: 2+ radial and dorsalis pedis pulses B/L, warm, well-perfused, no edema. NEUROLOGICAL: Cranial nerves II through XII grossly intact. Normal speech. PSYCH: Flat affect, and slow response to conversation. SKIN: Warm, dry. Laboratory Results - last 24 hr 06/01/18 06/01/18 06/01/18 10:15 10:15 18:47 WBC RBC Hgb Hct MCV MCH MCHC RDW Plt Count MPV Sodium 137 Potassium 3.8 Chloride 104 Carbon Dioxide 23 Anion Gap 10 BUN 28 H Creatinine 1.2 Creat Clearance w eGFR 45.09 Random Glucose 269 H Hemoglobin A1c % Calcium 9.2 Total Bilirubin 0.5 AST 57 H ALT 72 H Alkaline Phosphatase 90 Creatine Kinase 60 Troponin I < 0.02 Total Protein 7.8 Albumin 3.7 Vitamin B12 652 Serum Folate 19 H TSH 1.90 RPR Titer Nonreactive Hep Bs Antibody Non reactive 06/01/18 06/03/18 18:47 05:30 WBC 6.6 RBC 4.59 Hgb 14.4 Hct 41.0 MCV 89.3 MCH 31.3 MCHC 35.1 RDW 13.7 Plt Count 167 MPV 8.4 Sodium Potassium Chloride Carbon Dioxide Anion Gap BUN Creatinine Creat Clearance w eGFR Random Glucose Hemoglobin A1c % 9.5 H Calcium Total Bilirubin AST ALT Alkaline Phosphatase Creatine Kinase Troponin I Total Protein Albumin Vitamin B12 Serum Folate TSH RPR Titer Hep Bs Antibody Active Medications Generic Name Dose Route Start Last Admin Trade Name Leta PRN Reason Stop Dose Admin Albuterol Sulfate 2 puff 06/01/18 21:20 Ventolin Hfa Inhaler - IH Q4H PRN SHORT OF BREATH/WHEEZING Atorvastatin Calcium 20 mg 06/01/18 22:00 06/01/18 22:02 Lipitor - PO 20 mg HS ELIAZAR Administration Divalproex Sodium 1,000 mg 06/01/18 22:00 06/02/18 22:35 Depakote - PO 1,000 mg HS ELIAZAR Administration Docusate Sodium 100 mg 06/01/18 21:20 Colace - PO DAILY PRN CONSTIPATION Insulin Aspart 1 vial 06/01/18 22:00 06/03/18 06:10 Novolog Vial Sliding Scale - SQ 2 unit ACHS ELIAZAR Administration Protocol Losartan Potassium 50 mg 06/02/18 10:00 06/02/18 10:49 Cozaar - PO 50 mg DAILY ELIAZAR Administration ASSESSMENT/PLAN: Patient is a 67 year old female with history of hypertension, hyperlipidemia, bipolar disorder, noninsulin dependant diabetes mellitus, presents with generalized weakness. Pre-syncopal episode -Concern for normal pressure hydrocephalus as patient endorses shuffling gait, communication difficulties, and incontinence. -Folate, B12, TSH within normal limits. RPR negative -MRI brain shows no acute infarct. Mild ventricular/ subocrtical chronic microvascular ischemic changes. Moderate ventricular dilation, proportional to cerebral atrophy. -Cardiac ECHO shows normal LV and RV size, thickness, function. EF= 60-65%. Trace TR -LP performed today with Dr. Lauren. Will follow serology, CSF studies. -Physical therapy evaluation -Telemetry monitoring -Neurology consult (Dr. Lauren) appreciated Urinary tract infection -Currently asymptomatic. -First urine culture contaminated. Will straight catheterize, and repeat urine culture. -Follow repeat urine culture. -Begin empiric Rocephin 1 gram IV daily after repeat urine culture obtained. Hepatic transaminitis- resolved. -Right upper quadrant ultrasound shows hepatomegaly with fatty infiltration vs. hepatocelular disease. -Holding home Simvastatin -Follow Hepatitis serology studies. Hypertension -Losartan 50mg PO daily Hyperlipidemia -Holding home Simvastatin 40mg PO daily, due to transaminitis Diabetes mellitus -Holding home metformin and glipizide -Insulin sliding scale ACHS -Fingerstick blood glucose monitoring ACHS Bipolar disorder -Depakote 1000mg PO daily FEN -No IV fluids indicated -Follow CMP -Diabetic, sodium controlled diet Prophylaxis -SCDs B/L lower extremities Disposition -Observation on Telemetry floor Visit type - Emergency Visit Emergency Visit: Yes ED Registration Date: 06/01/18 Care time: The patient presented to the Emergency Department on the above date and was hospitalized for further evaluation of their emergent condition. - New Patient This patient is new to me today: No - Critical Care Critical Care patient: No - Discharge Referral Referred to [facility] Med P.C.: No
[2018-06-03] MEDS ORDERED: LIDOCAINE HCL/PF 2% SDV 5ML VIAL SQ ONE (08:30)
[2018-06-03 09:01] LABS: ALBUMIN 3.4 g/dl (3.4-5.0); ALK PHOS 86 U/L (45-117); ANION GAP 12 MMOL/L (8-16); BLOOD UREA NITROGEN 26 mg/dL (7-18); CALCIUM 9.2 mg/dL (8.5-10.1); CHLORIDE 107 mmol/L (98-107); CO2 22 mmol/L (21-32); GLUCOSE,RANDOM 184 mg/dL (74-106); POTASSIUM 3.6 mmol/L (3.5-5.1); SGOT/AST 32 U/L (15-37); SGPT/ALT 51 U/L (13-61); SODIUM 141 mmol/L (136-145); TOT PROT 7.3 g/dl (6.4-8.2)
--- NOTE | 2018-06-03 09:51 | PN ---
Progress Note (short form) - Note Progress Note: 67 year old woman with a history of HTN, hyperlipidemia, type 2 DM, bipolar disorder who comes to the ED complaining of worsening weakness and difficulty walking. She says that today while walking in the hallway, she became unsteady and thought she was going to fall. She was assisted by her daughter and she says she lowered herself to the floor. She denies loss of consciousness. In 2014 , she had difficulty walking and slurred speech which was attributed to lithium toxicity. Alsea was changed to Depakote at that time. She also reports that she "leaks urine" for the past year. She has had an MRI of the brain as part of the workup for her symptoms but she is unaware of the results. spoke to son, walking described as shuffling; started on LATUDA recently --thought pt unaware when. sugars not fully controlled, UA +, TSH NL, LFTs elevated CT HD : ventricular dilattaion (unable tro view scan on PACS) FU : this AM, more awake, she is conversive MRI REVIEWed--no clear evidence of hydrocephalus; no stroke or mass A1c 9.5 as per pt, she stopped her LATUDA couple weeks back as she didnt not like side effects she is refusing LP - Alcohol/Substance Use Hx Alcohol Use: No - Smoking History Smoking history: Never smoked Have you smoked in the past 12 months: No Home Medications - Allergies Allergies/Adverse Reactions: Allergies Allergy/AdvReac Type Severity Reaction Status Date / Time No Known Allergies Allergy Verified 01/25/15 12:35 - Home Medications Home Medications: Ambulatory Orders Losartan Potassium 50 mg PO DAILY 01/25/15 Simvastatin [Zocor -] 40 mg PO HS 01/25/15 metFORMIN HCL [Glucophage] 1,000 mg PO HS 01/25/15 Albuterol Sulfate Inhaler - [Ventolin Hfa Inhaler -] 2 inh PO Q4H PRN 06/01/18 Divalproex [Depakote -] 1,000 mg PO HS 06/01/18 Docusate Sodium 100 mg PO DAILY PRN 06/01/18 Glipizide Xl [Glucotrol Xl -] 5 mg PO DAILY 06/01/18 Physical Exam-Neuro Vital Signs: Vital Signs Temperature 97.8 F 06/03/18 08:36 Pulse Rate 78 06/03/18 08:36 Respiratory Rate 18 06/03/18 08:36 Blood Pressure 131/73 06/03/18 08:36 O2 Sat by Pulse Oximetry (%) 95 06/03/18 06:00 Labs: CBC, BMP 06/02/18 05:18 06/02/18 05:18 - Neuro Exam Level Of Consciousness: Yes: Alert (awake, flat affect and somewhat slow to respond, [place], no facial, motor 5/5, no tremor , no sig inc tone in LE , plantars dwn, gait shffuling, magnetic ) Problem List - Problems (1) Gait abnormality Code(s): R26.9 - UNSPECIFIED ABNORMALITIES OF GAIT AND MOBILITY (2) Hydrocephalus Code(s): G91.9 - HYDROCEPHALUS, UNSPECIFIED (3) Weakness Code(s): R53.1 - WEAKNESS (4) UTI (urinary tract infection) Code(s): N39.0 - URINARY TRACT INFECTION, SITE NOT SPECIFIED Assessment/Plan 67 year old woman with a history of HTN, hyperlipidemia, type 2 DM, bipolar disorder who comes to the ED complaining of worsening weakness and difficulty walking. She says that today while walking in the hallway, she became unsteady and thought she was going to fall. She was assisted by her daughter and she says she lowered herself to the floor. She denies loss of consciousness. In 2014 , she had difficulty walking and slurred speech which was attributed to lithium toxicity. Alsea was changed to Depakote at that time. She also reports that she "leaks urine" for the past year. She has had an MRI of the brain as part of the workup for her symptoms but she is unaware of the results. sugars not fully controlled, UA +, TSH NL, LFTs elevated CT HD : ventricular dilatation (unable tro view scan on PACS) AP : signs and Sx suggestive of NPH, cogntive issues, gait ABNL and incontence, though MRI not very impressive in regards to hydrocephalus may also be decompensation from DM neuropathy and UTI DM Control --A1c elevated ABX for UTI MRI BRAIN --no obvious hydrocephalus--tap maybe helpful though she is refusing at this juncture may have to follow her scan radiographically in 6 months and monitor ventricular size PSYCH FU PRN , unable to reach her primary psychiatrist FU LFTS issue REHAB DR ADAMS Problem List - Problems (1) Gait abnormality Code(s): R26.9 - UNSPECIFIED ABNORMALITIES OF GAIT AND MOBILITY (2) Hydrocephalus Code(s): G91.9 - HYDROCEPHALUS, UNSPECIFIED (3) Weakness Code(s): R53.1 - WEAKNESS (4) UTI (urinary tract infection) Code(s): N39.0 - URINARY TRACT INFECTION, SITE NOT SPECIFIED
[2018-06-03] MEDS: LOSARTAN POTASSIUM 50 MG TABLET (FP) PO SCH (09:55)
--- NOTE | 2018-06-03 11:12 | PN ---
Teaching Attending Note Name of Resident: Oscar Collado ATTENDING PHYSICIAN STATEMENT I saw and evaluated the patient. I reviewed the resident's note and discussed the case with the resident. I agree with the resident's findings and plan as documented. SUBJECTIVE: Denies any complaints currently - no lightheadedness/CP/palpitations /SOB/cough/sputum. Admits to intermittent dysuria and urinary incontinence. OBJECTIVE: Afebrile, Hemodynamically Stable. Last Vital Signs Temp Pulse Resp BP Pulse Ox 97.8 F 78 18 131/73 95 06/03/18 08:36 06/03/18 08:36 06/03/18 08:36 06/03/18 08:36 06/03/18 06:00 HEENT - Atraumatic, Normocephalic. No pharyngeal erythema/exudate HEART: S1, S2, RRR LUNGS: Clear to auscultation. ABDOMEN: Soft, non-tender, non-distended, normal BS EXTREMITIES: No edema. No calf tenderness. NEUROLOGICAL: AAO x3. Muted affect. Hearing impaired. HALEY. EOMI. CN intact. Laboratory Results - last 24 hr 06/01/18 06/01/18 06/03/18 10:15 10:15 05:30 WBC 6.6 RBC 4.59 Hgb 14.4 Hct 41.0 MCV 89.3 MCH 31.3 MCHC 35.1 RDW 13.7 Plt Count 167 MPV 8.4 Sodium Potassium Chloride Carbon Dioxide Anion Gap BUN Creatinine Creat Clearance w eGFR Random Glucose Calcium Total Bilirubin AST ALT Alkaline Phosphatase Total Protein Albumin RPR Titer Nonreactive Hep Bs Antibody Non reactive 06/03/18 05:30 WBC RBC Hgb Hct MCV MCH MCHC RDW Plt Count MPV Sodium 141 Potassium 3.6 Chloride 107 Carbon Dioxide 22 Anion Gap 12 BUN 26 H Creatinine 1.0 Creat Clearance w eGFR 55.64 Random Glucose 184 H Calcium 9.2 Total Bilirubin 1.0 AST 32 ALT 51 Alkaline Phosphatase 86 Total Protein 7.3 Albumin 3.4 RPR Titer Hep Bs Antibody Current Medications Generic Name Dose Route Start Last Admin Trade Name Freq PRN Reason Stop Dose Admin Albuterol Sulfate 2 puff 06/01/18 21:20 Ventolin Hfa Inhaler - IH Q4H PRN SHORT OF BREATH/WHEEZING Atorvastatin Calcium 20 mg 06/01/18 22:00 06/01/18 22:02 Lipitor - PO 20 mg HS ELIAZAR Administration Divalproex Sodium 1,000 mg 06/01/18 22:00 06/02/18 22:35 Depakote - PO 1,000 mg HS ELIAZAR Administration Docusate Sodium 100 mg 06/01/18 21:20 Colace - PO DAILY PRN CONSTIPATION Insulin Aspart 1 vial 06/01/18 22:00 06/03/18 06:10 Novolog Vial Sliding Scale - SQ 2 unit ACHS ELIAZAR Administration Protocol Losartan Potassium 50 mg 06/02/18 10:00 06/03/18 09:55 Cozaar - PO 50 mg DAILY ELIAZAR Administration ASSESSMENT AND PLAN: 67 year old hearing impaired, female history of HTN, HLD, DM 2, bipolar disorder who presented to the ED with weakness and difficulty ambulating with a near fall event. She was lowered to the floor by her daughter. Denies any lightheadedness/dizziness/CP/palpitations. No loss of consciousness. Family also reports intermittent confusion. 1. Weakness with unsteady gait/ambulatory dysfunction, intermittent confusion, urinary incontinence CT Head/MRI Brain - mild to moderate dilatation of ventricles, no hydrocephalus. Evaluated by Neuro - presentation suspicious for Normal pressure hydrocephalus. Patient declines LP B12/Folate wnl. RPR neg. TSH normal. UCx contaminated. Will send repeat Cx and start empirically on Ceftriaxone, pending Cx result. Echo pending. PT eval 2. Hepatic Transaminitis RUQ US - Hepatomegaly/Fatty infiltrate vs hepatocellular disease. Will hold statin Hepatitis panel pending. 3. HTN - Continue Cozaar 4. Hyperlipidemia - Statin held due to elevated transaminases. 5. DM 2 - Uncontrolled, A1C 9.5. Continue Novolog as per sliding scale. Metformin/Glipizide held. 6. Bipolar disorder - Continue Depakote DVT Px - Will start Heparin as patient refusing LP. Dispo - If Echo normal and ambulates normally with PT, patient can be discharged home with out-patient neuro and GI follow up. Otherwise, will need Rehab/SNF.
--- NOTE | 2018-06-03 12:17 | PROC ---
Lumbar Puncture Indication: NPH Risks and Benefits Explained: Yes Consent on Chart: Yes Sterile Technique: Yes Skin prep: Betadine Position: Left lateral decubitus Site: L4-L51 Local Anesthesia: 1% Lidocaine with epi (1% lidocaine without epi was given) Opening Pressure(mmHg): 22 CSF Color, Appearance: Clear Sterile Dressing Applied: Yes
--- NOTE | 2018-06-03 12:41 | ECHO ---
Name: SALOME MOE Exam:Adult Echocardiogram Study Date: 06/03/2018 09:17 AM Age: 67 yrs Reason For Study: PRE-SYNCOPAL EPISODE Height: 62 in Weight: 180 lb BSA: 1.8 m2 MMode/2D Measurements & Calculations IVSd: 0.76 cm Ao root diam: 3.3 cm LVIDd: 4.5 cm LA dimension: 3.5 cm LVIDs: 2.7 cm ACS: 1.8 cm LVPWd: 1.00 cm IVSs: 1.4 cm LVPWs: 1.1 cm EDV(Teich): 92.4 ml ESV(Teich): 27.4 ml Doppler Measurements & Calculations MV E max sofi: 55.5 cm/sec Ao V2 max: 156.1 cm/sec MV A max sofi: 82.2 cm/sec Ao max P.7 mmHg MV E/A: 0.68 Med Peak E' Sofi: 5.8 cm/sec Med E/e': 9.5 Lat Peak E' Sofi: 6.3 cm/sec Lat E/e': 8.8 Procedure A complete two-dimensional transthoracic echocardiogram was performed (2D, M-mode, Doppler and color flow Doppler). Left Ventricle The left ventricular size, thickness and function are normal. The left ventricular ejection fraction is normal. Ejection Fraction = 60-65%. The left ventricular wall motion is normal. Right Ventricle The right ventricle is normal in size and function. Atria Normal left and right atrial size and function. Mitral Valve There is no mitral regurgitation noted. Tricuspid Valve There is trace tricuspid regurgitation. There was insufficient TR detected to calculate RV systolic p ressure. Aortic Valve No hemodynamically significant valvular aortic stenosis. No aortic regurgitation is present. Pulmonic Valve There is no pulmonic valvular regurgitation. Great Vessels The aortic root is normal size. Pericardium/Pleura There is no pericardial effusion. Interpretation Summary The left ventricular size, thickness and function are normal The right ventricle is normal in size and function. There is trace tricuspid regurgitation. MD Yunior Ricketts 06/03/2018 12:41 PM
[2018-06-03] MEDS ORDERED: cefTRIAXone SODIUM 1 GM VIAL ONE (12:47)
[2018-06-03] MEDS ORDERED: DEXTROSE 5%-WATER - 50 ML IVPB ONE (12:48)
[2018-06-03] MEDS: CEFTRIAXONE 1 GM in DEXTROSE 5%-WATER - 50 ML IVPB SCH (13:04)
[2018-06-03 13:21] LABS: HBSAG SCREEN Negative (Negative); HEP A AB, IGM Negative (Negative); HEP B CORE AB, TOT Negative (Negative)
[2018-06-03 13:23] LABS: BF GLUCOSE (CSF ONLY) 116 mg/dL (40-70)
[2018-06-03 13:58] LABS: CSF APPEARANCE CLEAR; CSF COLOR COLORLESS; CSF WBC 0; OTHER CELLS N
[2018-06-03] MEDS: HEPARIN NA (PORCINE) 5,000 UNITS/ML 1ML VIAL SQ SCH (21:42)
[2018-06-03] MEDS: DIVALPROEX SODIUM 500 MG TABLET E.C. PO SCH (21:42)
[2018-06-04] MEDS: INSULIN SLIDING SCALE (NOVOLOG) 1 VIAL SQ SCH ×2 (06:42→13:17)
[2018-06-04 07:51] LABS: HEMATOCRIT 42.9 % (32.4-45.2); MCH 31.5 pg (25.7-33.7); MEAN CELL VOLUME 89.9 fl (80-96); MEAN PLT VOLUME 8.7 fl (7.5-11.1); PLATELET COUNT 175 K/MM3 (134-434); RBC 4.78 M/mm3 (3.60-5.2); RDW 13.9 % (11.6-15.6); WHITE BLOOD COUNT 5.4 K/mm3 (4.0-10.0)
[2018-06-04 08:11] LABS: ALBUMIN 3.4 g/dl (3.4-5.0); ALK PHOS 86 U/L (45-117); ANION GAP 11 MMOL/L (8-16); BILIRUBIN,TOTAL 0.5 mg/dL (0.2-1); BLOOD UREA NITROGEN 29 mg/dL (7-18); CALCIUM 8.9 mg/dL (8.5-10.1); CHLORIDE 106 mmol/L (98-107); CO2 25 mmol/L (21-32); GLUCOSE,RANDOM 162 mg/dL (74-106); MAGNESIUM 2.1 mg/dL (1.8-2.4); PHOSPHOROUS 3.8 mg/dL (2.5-4.9); POTASSIUM 3.6 mmol/L (3.5-5.1); SGOT/AST 30 U/L (15-37); SGPT/ALT 50 U/L (13-61); SODIUM 142 mmol/L (136-145); TOT PROT 7.4 g/dl (6.4-8.2)
[2018-06-04] MEDS ORDERED: cefTRIAXone SODIUM 1 GM VIAL ONE (09:23)
[2018-06-04] MEDS ORDERED: DEXTROSE 5%-WATER - 50 ML IVPB ONE (09:24)
--- NOTE | 2018-06-04 09:37 | PN ---
Progress Note (short form) - Note Progress Note: 67 year old woman with a history of HTN, hyperlipidemia, type 2 DM, bipolar disorder who comes to the ED complaining of worsening weakness and difficulty walking. She says that today while walking in the hallway, she became unsteady and thought she was going to fall. She was assisted by her daughter and she says she lowered herself to the floor. She denies loss of consciousness. In 2014 , she had difficulty walking and slurred speech which was attributed to lithium toxicity. [place] was changed to Depakote at that time. She also reports that she "leaks urine" for the past year. She has had an MRI of the brain as part of the workup for her symptoms but she is unaware of the results. spoke to son, walking described as shuffling; started on LATUDA recently --thought pt unaware when. sugars not fully controlled, UA +, TSH NL, LFTs elevated CT HD : ventricular dilattaion (unable tro view scan on PACS) FU : awake and sitting bedside , son beside as well s/p hogh volume LP yesterday, OP 22 -- some minor improvement in gait, still needs walker MRI REVIEWed--no clear evidence of hydrocephalus; no stroke or mass A1c 9.5 as per pt, she stopped her LATUDA couple weeks back as she didnt not like side effects - Alcohol/Substance Use Hx Alcohol Use: No - Smoking History Smoking history: Never smoked Have you smoked in the past 12 months: No Home Medications - Allergies Allergies/Adverse Reactions: Allergies Allergy/AdvReac Type Severity Reaction Status Date / Time No Known Allergies Allergy Verified 01/25/15 12:35 - Home Medications Home Medications: Ambulatory Orders Losartan Potassium 50 mg PO DAILY 01/25/15 Simvastatin [Zocor -] 40 mg PO HS 01/25/15 metFORMIN HCL [Glucophage] 1,000 mg PO HS 01/25/15 Albuterol Sulfate Inhaler - [Ventolin Hfa Inhaler -] 2 inh PO Q4H PRN 06/01/18 Divalproex [Depakote -] 1,000 mg PO HS 06/01/18 Docusate Sodium 100 mg PO DAILY PRN 06/01/18 Glipizide Xl [Glucotrol Xl -] 5 mg PO DAILY 06/01/18 Physical Exam-Neuro Vital Signs: Vital Signs Temperature 97.8 F 06/03/18 08:36 Pulse Rate 78 06/03/18 08:36 Respiratory Rate 18 06/03/18 08:36 Blood Pressure 131/73 06/03/18 08:36 O2 Sat by Pulse Oximetry (%) 95 06/03/18 06:00 Labs: CBC, BMP 06/02/18 05:18 06/02/18 05:18 - Neuro Exam Level Of Consciousness: Yes: Alert (awake, flat affect and somewhat slow to respond, [place], no facial, motor 5/5, no tremor , no sig inc tone in LE , plantars dwn, gait shffuling, magnetic ) Problem List - Problems (1) Gait abnormality Code(s): R26.9 - UNSPECIFIED ABNORMALITIES OF GAIT AND MOBILITY (2) Hydrocephalus Code(s): G91.9 - HYDROCEPHALUS, UNSPECIFIED (3) Weakness Code(s): R53.1 - WEAKNESS (4) UTI (urinary tract infection) Code(s): N39.0 - URINARY TRACT INFECTION, SITE NOT SPECIFIED Assessment/Plan 67 year old woman with a history of HTN, hyperlipidemia, type 2 DM, bipolar disorder who comes to the ED complaining of worsening weakness and difficulty walking. She says that today while walking in the hallway, she became unsteady and thought she was going to fall. She was assisted by her daughter and she says she lowered herself to the floor. She denies loss of consciousness. In 2014 , she had difficulty walking and slurred speech which was attributed to lithium toxicity. [place] was changed to Depakote at that time. She also reports that she "leaks urine" for the past year. She has had an MRI of the brain as part of the workup for her symptoms but she is unaware of the results. sugars not fully controlled, UA +, TSH NL, LFTs elevated CT HD : ventricular dilatation (unable tro view scan on PACS) AP : signs and Sx suggestive of NPH, cogntive issues, gait ABNL and incontence, though MRI not very impressive in regards to hydrocephalus may also be decompensation from DM neuropathy and UTI DM Control --A1c elevated ABX for UTI LP --slight inc in OP, mild improvement s/p high volume tap MRI BRAIN --no obvious hydrocephalus-- will follow her scan radiographically in 6 months and monitor ventricular size , no shunt indication for shunt at this juncture cleared for DC , d/w family DR ADAMS Problem List - Problems (1) Gait abnormality Code(s): R26.9 - UNSPECIFIED ABNORMALITIES OF GAIT AND MOBILITY (2) Hydrocephalus Code(s): G91.9 - HYDROCEPHALUS, UNSPECIFIED (3) Weakness Code(s): R53.1 - WEAKNESS (4) UTI (urinary tract infection) Code(s): N39.0 - URINARY TRACT INFECTION, SITE NOT SPECIFIED
[2018-06-04] MEDS: HEPARIN NA (PORCINE) 5,000 UNITS/ML 1ML VIAL SQ SCH (10:01)
[2018-06-04] MEDS: LOSARTAN POTASSIUM 50 MG TABLET (FP) PO SCH (10:01)
[2018-06-04] MEDS: CEFTRIAXONE 1 GM in DEXTROSE 5%-WATER - 50 ML IVPB SCH (10:01)
[2018-06-04 11:04] VITALS: BP 119/70; PULSE 65; TEMP 97.5
--- NOTE | 2018-06-04 12:21 | PN ---
Teaching Attending Note Name of Resident: Oscar Collado ATTENDING PHYSICIAN STATEMENT I saw and evaluated the patient. I reviewed the resident's note and discussed the case with the resident. I agree with the resident's findings and plan as documented. SUBJECTIVE: Feels well - no complaints - no lightheadedness/CP/palpitations/SOB/ cough/sputum. No further dysuria. OBJECTIVE: Afebrile, Hemodynamically Stable. Last Vital Signs Temp Pulse Resp BP Pulse Ox 97.5 F L 65 18 119/70 97 06/04/18 10:00 06/04/18 10:00 06/04/18 11:00 06/04/18 10:00 06/04/18 11:00 HEENT - Atraumatic, Normocephalic. No pharyngeal erythema/exudate HEART: S1, S2, RRR LUNGS: Clear to auscultation. ABDOMEN: Soft, non-tender, non-distended, normal BS EXTREMITIES: No edema. No calf tenderness. NEUROLOGICAL: AAO x3. Muted affect. Hearing impaired. [place]. EOMI. CN intact. Laboratory Results - last 24 hr 06/01/18 06/03/18 06/04/18 10:15 12:25 06:20 WBC 5.4 RBC 4.78 Hgb 15.0 Hct 42.9 MCV 89.9 MCH 31.5 MCHC 35.0 RDW 13.9 Plt Count 175 MPV 8.7 Sodium Potassium Chloride Carbon Dioxide Anion Gap BUN Creatinine Creat Clearance w eGFR Random Glucose Calcium Phosphorus Magnesium Total Bilirubin AST ALT Alkaline Phosphatase Total Protein Albumin CSF Appearance Clear CSF Color Colorless CSF WBC 0 CSF RBC 37 CSF Neutrophils No Result Required. CSF Lymphocytes No Result Required. CSF Eosinophils No Result Required. CSF Basophils No Result Required. CSF Macrophages No Result Required. CSF Plasma Cells No Result Required. CSF Other Cells N CSF Diff Comment No Result Required. CSF Comment Tube #4 CSF Glucose 116 H CSF Total Protein 72 H Hep A IgM Ab Confirm Negative Hepatitis A Ab Total Positive H Hep Bs Antigen Negative Hep Bs Antibody Non reactive Hep B Core Total Ab Negative 06/04/18 06:20 WBC RBC Hgb Hct MCV MCH MCHC RDW Plt Count MPV Sodium 142 Potassium 3.6 Chloride 106 Carbon Dioxide 25 Anion Gap 11 BUN 29 H Creatinine 1.0 Creat Clearance w eGFR 55.64 Random Glucose 162 H Calcium 8.9 Phosphorus 3.8 Magnesium 2.1 Total Bilirubin 0.5 AST 30 ALT 50 Alkaline Phosphatase 86 Total Protein 7.4 Albumin 3.4 CSF Appearance CSF Color CSF WBC CSF RBC CSF Neutrophils CSF Lymphocytes CSF Eosinophils CSF Basophils CSF Macrophages CSF Plasma Cells CSF Other Cells CSF Diff Comment CSF Comment CSF Glucose CSF Total Protein Hep A IgM Ab Confirm Hepatitis A Ab Total Hep Bs Antigen Hep Bs Antibody Hep B Core Total Ab Current Medications Generic Name Dose Route Start Last Admin Trade Name Freq PRN Reason Stop Dose Admin Albuterol Sulfate 2 puff 06/01/18 21:20 Ventolin Hfa Inhaler - IH Q4H PRN SHORT OF BREATH/WHEEZING Atorvastatin Calcium 20 mg 06/01/18 22:00 06/01/18 22:02 Lipitor - PO 20 mg HS ELIAZAR Administration Divalproex Sodium 1,000 mg 06/01/18 22:00 06/03/18 21:42 Depakote - PO 1,000 mg HS ELIAZAR Administration Docusate Sodium 100 mg 06/01/18 21:20 Colace - PO DAILY PRN CONSTIPATION Heparin Sodium (Porcine) 5,000 unit 06/03/18 22:00 06/04/18 10:01 Heparin - SQ 5,000 unit BID ELIAZAR Administration Ceftriaxone Sodium 1 gm/ 50 mls @ 100 mls/hr 06/03/18 11:15 06/04/18 10:01 Dextrose IVPB 100 mls/hr DAILY ELIAZAR Administration Protocol Insulin Aspart 1 vial 06/01/18 22:00 06/04/18 06:42 Novolog Vial Sliding Scale - SQ 2 unit ACHS ELIAZAR Administration Protocol Losartan Potassium 50 mg 06/02/18 10:00 06/04/18 10:01 Cozaar - PO 50 mg DAILY ELIAZAR Administration ASSESSMENT AND PLAN: 67 year old hearing impaired, female history of HTN, HLD, DM 2, bipolar disorder who presented to the ED with weakness and difficulty ambulating with a near fall event. She was lowered to the floor by her daughter. Denies any lightheadedness/dizziness/CP/palpitations. No loss of consciousness. Family also reports intermittent confusion. 1. Weakness with unsteady gait/ambulatory dysfunction, intermittent confusion, urinary incontinence suggestive of Normal Pressure Hydrocephalus CT Head/MRI Brain - mild to moderate dilatation of ventricles, no hydrocephalus. Evaluated by Neuro - presentation suspicious for Normal pressure hydrocephalus. s/p large vol LP 06/03, opening pressure 22, CSF Gram Stain/Cx neg, with subsequent gait improvement reported. B12/Folate wnl. RPR neg. TSH normal. Echo normal PT eval - cleared for dc home 2. Hepatic Transaminitis RUQ US - Hepatomegaly/Fatty infiltrate vs hepatocellular disease. LFTs improved on stopping statin. Hepatitis panel still pending. For follow up as out-patient. For slow re-introduction of statin at lower dose as out-patient. 3. HTN - Continue Cozaar 4. Hyperlipidemia - Statin held due to elevated transaminases. 5. DM 2 - Uncontrolled, A1C 9.5. Resume on home regimen Metformin/Glipizide with PCP follow up and titration of meds. 6. Bipolar disorder - Continue Depakote 7. UTI - Urine Cx still pending. Treated with IV Ceftriaxone as in-patient, for discharge on Ciprofloxacin for total 5 days. Dispo - Medically and Neurologically cleared for discharge home with [facility]NA services.
--- NOTE | 2018-06-04 13:24 | DS ---
Physical Exam: SUBJECTIVE: Patient seen and examined at bedside this morning. Patient denies subjective fevers, chills, headache, cough, shortness of breath, chest pain, palpitations, abdominal pain, nausea, vomiting. OBJECTIVE: Vital Signs Period Temp Pulse Resp BP Sys/[place] Pulse Ox Last 24 Hr 97.5 F-98.3 F 65-80 18-20 112-131/56-72 96-97 PHYSICAL EXAM GENERAL: The patient is awake, alert, and oriented to person, place, and time in no acute distress. HEAD: Normocephalic, atraumatic. EYES: PERRL, extraocular movements intact, sclera anicteric. ENT: Oropharynx clear without exudates, moist mucous membranes. NECK: Supple without lymphadenopathy LUNGS: Breath sounds equal, clear to auscultation bilaterally, no wheezes, no crackles, no accessory muscle use. HEART: Regular rate and rhythm, S1, S2 without murmur, rub or gallop. ABDOMEN: Soft, nontender to light and deep palpation X4 quadrants, nondistended. Normoactive bowel sounds. No guarding, no rebound tenderness. EXTREMITIES: 2+ radial and dorsalis pedis pulses B/L, warm, well-perfused, no edema. NEUROLOGICAL: Cranial nerves II through XII grossly intact. Normal speech. PSYCH: Flat affect, and slow response to conversation. SKIN: Warm, dry. LABS Laboratory Results - last 24 hr 06/03/18 06/04/18 06/04/18 12:25 06:20 06:20 WBC 5.4 RBC 4.78 Hgb 15.0 Hct 42.9 MCV 89.9 MCH 31.5 MCHC 35.0 RDW 13.9 Plt Count 175 MPV 8.7 Sodium 142 Potassium 3.6 Chloride 106 Carbon Dioxide 25 Anion Gap 11 BUN 29 H Creatinine 1.0 Creat Clearance w eGFR 55.64 Random Glucose 162 H Calcium 8.9 Phosphorus 3.8 Magnesium 2.1 Total Bilirubin 0.5 AST 30 ALT 50 Alkaline Phosphatase 86 Total Protein 7.4 Albumin 3.4 CSF Appearance Clear CSF Color Colorless CSF WBC 0 CSF RBC 37 CSF Neutrophils No Result Required. CSF Lymphocytes No Result Required. CSF Eosinophils No Result Required. CSF Basophils No Result Required. CSF Macrophages No Result Required. CSF Plasma Cells No Result Required. CSF Other Cells N CSF Diff Comment No Result Required. CSF Comment Tube #4 HOSPITAL COURSE: Date of Admission:06/01/18 Date of Discharge: 06/04/18 Patient is a 67 year old female with history of hypertension, hyperlipidemia, bipolar disorder, noninsulin dependant diabetes mellitus, presents with generalized weakness. Patient was evaluated by neurology, with concern for normal pressure hydrocephalus as patient endorsed shuffling gait, communication difficulties, and incontinence. Folate, B12, TSH within normal limits. RPR negative. MRI brain showed no acute infarct. Mild ventricular/ subocrtical chronic microvascular ischemic changes noted. Moderate ventricular dilation, proportional to cerebral atrophy. LP was performed by neurology with clear CSF, slightly increased opening pressure. Patient noted slight improvement with respect to gait after high volume tap. Patient discharged home with [facility]. Follow up with primary care physician, neurologist referral provided. Minutes to complete discharge: 37 Discharge Summary Reason For Visit: PRE-SYNCOPE Current Active Problems Dizziness (Acute) Gait abnormality (Acute) Hydrocephalus (Acute) Weakness (Acute) Condition: Stable - Instructions Diet, Activity, Other Instructions: You were admitted to the hospital for weakness. You were evaluated by the neurologist and had an MRI scan of your brain. You also had a procedure to remove some fluid surrounding the spinal cord (Lumbar Puncture). You are being discharged home with services. Continue taking your home medications as directed with the following excepting. You will continue taking antibiotic Ciprofloxacin 500mg every 12 hours for the next 5 days. We will hold your Simvastatin home dose. Discuss with your physician regarding reinstating the medication at a lower dose. Further you giovany require blood work at your appointment (CBC, CMP, LFTs). Your Hemoglobin A1c, was elevated at 9.5. Continue your home medications, and discuss with your physician. Follow up with your primary care physician (Dr. Aviles) within one- two days after discharge. You will follow up with the neurologist (Dr. Lauren) within one week of discharge. You will need repeat imaging (MRI) within 6 months. You will discuss with your neurologist at your appointment. Return to the nearest Emergency Department if you experience worsening symptoms fevers, chills, shortness of breath, chest pain, palpitations, abdominal pain, nausea, vomiting. Referrals: Conor Lauren DO [Staff Physician] - Richie Aviles [Primary Care Provider] - Disposition: VNS/HOME HEALTH CARE - Home Medications Comprehensive Discharge Medication List: Ambulatory Orders Losartan Potassium 50 mg PO DAILY 01/25/15 metFORMIN HCL [Glucophage] 1,000 mg PO HS 01/25/15 Albuterol Sulfate Inhaler - [Ventolin HFA Inhaler -] 2 inh PO Q4H PRN 06/01/18 Divalproex [Depakote -] 1,000 mg PO HS 06/01/18 Docusate Sodium 100 mg PO DAILY PRN 06/01/18 Glipizide Xl [Glucotrol Xl -] 5 mg PO DAILY 06/01/18 Ciprofloxacin [Cipro -] 500 mg PO Q12H 5 Days #10 tablet 06/04/18 This patient is new to me today: No Emergency Visit: Yes ED Registration Date: 06/01/18 Care time: The patient presented to the Emergency Department on the above date and was hospitalized for further evaluation of their emergent condition. Critical Care patient: No - Discharge Referral Referred to [facility] No
--- NOTE | 2018-06-04 14:04 | PATH ---
Cytology Non-Gynecological Report Patient Name: SALOME MOE Med. Rec. #: [id number] /Age/Gender: 1950 (Age: 67) / F Account: [id number] Location: 4 W TELEMETRY U Taken: 06/03/2018 Received: 06/03/2018 Reported: 06/04/2018 Physicians: Conor Rivers MD Specimen(s) Received CEREBRAL SPINAL FLUID Clinical History Normal pressure Hydrocephalus Final Diagnosis CEREBROSPINAL FLUID (CSF) FOR CYTOLOGY: SATISFACTORY FOR EVALUATION. NEGATIVE FOR MALIGNANT CELLS. RARE LYMPHOCYTES AND SCATTERED RED BLOOD CELLS PRESENT. Electronically Signed Spring Feng M.D. Gross Description Approximately 1.5 cc of clear fluid received fresh. Two cytofunnels prepared and Pap stained.
== END 2018-06-04 15:13 | disposition home health service (06) ==
LOC: JER 16:32 → JERBED 20:13 → J4W 06-02 19:59
PROVIDERS: ADMIT Internal Medicine
PROC: 009U3ZZ Drainage of Spinal Canal, Percutaneous Approach (ICD-10-PCS; principal; 2018-06-01)
PROC: 3E03329 Introduction of Other Anti-infective into Peripheral Vein, Percutaneous Approach (ICD-10-PCS; 2018-06-01)
DX: M62.81 Muscle weakness (generalized) (principal); R26.9 Unspecified abnormalities of gait and mobility; G91.2 (Idiopathic) normal pressure hydrocephalus; N39.0 Urinary tract infection, site not specified; R42 Dizziness and giddiness; R41.0 Disorientation, unspecified; I45.10 Unspecified right bundle-branch block; I49.1 Atrial premature depolarization; R27.0 Ataxia, unspecified; R74.0 Nonspecific elevation of levels of transaminase and lactic acid dehydrogenase [LDH]; I10 Essential (primary) hypertension; E78.5 Hyperlipidemia, unspecified; F31.9 Bipolar disorder, unspecified; E11.65 Type 2 diabetes mellitus with hyperglycemia; Z79.84 Long term (current) use of oral hypoglycemic drugs
CPT/HCPCS: 36415; 62272; 70450-TC; 70551-TC; 71045-TC-FY; 76700-TC; 80053; 81003; 81015; 82550; 82607; 82746; 82945; 82962; 83036; 83735; 84100; 84157; 84443; 84484; 85025; 85027; 86593; 86704; 86706; 86708; 87070; 87086; 87205; 87340; 87522; 88108; 93005; 93010; 93306-TC; 96374; 97116-GP; 99285-25; G0378; J1644

== ENCOUNTER 2021-12-17 04:09 | Day surgery (SDC) | payer OTHER ==
[2021-12-12 14:19] VITALS: BMI 38.9
[2021-12-17] MEDS ORDERED: PROPOFOL 20 ML ONE ×2 (12:42→14:04)
[2021-12-17] MEDS ORDERED: LIDOCAINE HCL/PF 2% SDV 5ML VIAL ONE (12:43)
[2021-12-17] MEDS ORDERED: MIDAZOLAM HCL 2 MG/2 ML SINGLE DOSE VIAL ONE ×2 (14:04→14:06)
[2021-12-17] MEDS ORDERED: ROCURONIUM BROMIDE 50 MG/5 ML SYRINGE ONE (14:28)
[2021-12-17] MEDS ORDERED: ceFAZolin SODIUM 1 GM VIAL ONE (14:30)
[2021-12-17] MEDS ORDERED: ceFAZolin SODIUM 1 GM VIAL IVPB ONE (14:32)
[2021-12-17] MEDS ORDERED: IBUPROFEN 800 MG/8 ML IJ IVPB PRN (14:48)
[2021-12-17] MEDS ORDERED: IBUPROFEN 600 MG TABLET (FP) PO PRN (14:48)
[2021-12-17] MEDS ORDERED: ONDANSETRON 4 MG/2 ML VIAL IVPUSH PRN ×2 (14:48)
[2021-12-17] MEDS ORDERED: oxyCODONE HCL 5 MG TABLET PO PRN ×2 (14:48)
[2021-12-17] MEDS ORDERED: ACETAMINOPHEN 1000 MG/100 ML BAG IVPB ONE (14:49)
[2021-12-17] MEDS ORDERED: ELECTROLYTE-148 SOLN 1,000 ML IV SCH (15:00)
[2021-12-17] MEDS ORDERED: LACTATED RINGERS SOLUTION 1,000 ML IV SCH (15:00)
[2021-12-17] MEDS ORDERED: ACETAMINOPHEN INJECTION 100 ML IVPB ONE (15:24)
[2021-12-17 16:21] VITALS: PULSE 68
[2021-12-17 16:22] VITALS: RESP 16
[2021-12-17 16:39] VITALS: BP 141/85; TEMP 98.3
== END 2021-12-17 17:45 | disposition home or self-care (01) ==
LOC: JASU-SURG 04:09
PROVIDERS: ATTEND Obstetrics & Gynecology
PROC: 0UDB7ZX Extraction of Endometrium, Via Natural or Artificial Opening, Diagnostic (ICD-10-PCS; 2021-12-17)
PROC: 0UJD8ZZ Inspection of Uterus and Cervix, Via Natural or Artificial Opening Endoscopic (ICD-10-PCS; 2021-12-17)
PROC: 0UC98ZZ Extirpation of Matter from Uterus, Via Natural or Artificial Opening Endoscopic (ICD-10-PCS; principal; 2021-12-17 14:38)
DX: N95.0 Postmenopausal bleeding (principal); Z30.432 Encounter for removal of intrauterine contraceptive device; I10 Essential (primary) hypertension; E11.9 Type 2 diabetes mellitus without complications
CPT/HCPCS: 82962; 88300-TC; 88305-TC; 94760

== ENCOUNTER 2022-03-17 04:20 | Inpatient (IN) | payer OTHER ==
[2022-03-17 06:35] LABS: BASO % 0.2 % (0-2.0); EOS % 0.3 % (0-4.5); HEMATOCRIT 33.1 % (32.4-45.2); LYMPH % 8.7 % (8-40); MCH 29.4 pg (25.7-33.7); MCHC 33.2 g/dl (32.0-36.0); MEAN CELL VOLUME 88.5 fl (80-96); MEAN PLT VOLUME 7.7 fl (7.5-11.1); MONO % 14.5 % (3.8-10.2); NEUT % 76.3 % (42.8-82.8); PLATELET COUNT 163 10^3/uL (134-434); RBC 3.75 M/mm3 (3.60-5.2); RDW 15.9 % (11.6-15.6); WHITE BLOOD COUNT 5.7 K/mm3 (4.0-10.0)
[2022-03-17 08:11] LABS: CHLORIDE 111 mmol/L (98-107); SODIUM 142 mmol/L (136-145)
[2022-03-17 08:12] LABS: CALCIUM 9.2 mg/dL (8.5-10.1)
[2022-03-17 08:13] LABS: ALBUMIN 3.5 g/dl (3.4-5.0); GLUCOSE,RANDOM 63 mg/dL (74-106)
[2022-03-17 08:16] LABS: CREATININE 1.2 mg/dL (0.55-1.3); SGOT/AST 35 U/L (15-37); SGPT/ALT 28 U/L (13-61)
[2022-03-17 08:18] LABS: BILIRUBIN,TOTAL 0.2 mg/dL (0.2-1); TOT PROT 7.1 g/dl (6.4-8.2)
[2022-03-17 08:19] LABS: ALK PHOS 64 U/L (45-117)
[2022-03-17 08:50] LABS: ANION GAP 13 MMOL/L (8-16); CO2 18 mmol/L (21-32)
[2022-03-17] MEDS ORDERED: DEXTROSE 50%-WATER - 25 GM/50 ML VIAL IVPUSH ONE (09:24)
[2022-03-17] MEDS ORDERED: DEXTROSE 50%-WATER 25 GM/50 ML DISP.SYRIN ONE (09:52)
[2022-03-17] MEDS ORDERED: ACETAMINOPHEN 325 MG TABLET (FP) PO PRN (10:08)
[2022-03-17] MEDS ORDERED: ALBUTEROL SO4 HFA INHALER IH PRN (10:13)
[2022-03-17] MEDS ORDERED: ATORVASTATIN CA 10 MG TABLET (FP) ONE (11:05)
[2022-03-17] MEDS: ATORVASTATIN CA 10 MG TABLET (FP) PO SCH (11:12)
[2022-03-17] MEDS: INSULIN SLIDING SCALE (NOVOLOG) 1 VIAL SQ SCH ×2 (11:13→16:30)
[2022-03-17] MEDS ORDERED: ACETAMINOPHEN 325 MG TABLET (FP) ONE (16:18)
[2022-03-17] MEDS ORDERED: CEFTRIAXONE 1 GM/50 ML BAG ONE (16:19)
[2022-03-17] MEDS: CEFTRIAXONE 1 GM in DEXTROSE 5%-WATER - 50 ML IVPB SCH (16:29)
[2022-03-18] MEDS: INSULIN SLIDING SCALE (NOVOLOG) 1 VIAL SQ SCH ×3 (06:08→16:44)
[2022-03-18 08:50] LABS: BASO % 0.5 % (0-2.0); HEMOGLOBIN 11.6 GM/dL (10.7-15.3); LYMPH % 20.9 % (8-40); MCH 29.8 pg (25.7-33.7); MCHC 34.1 g/dl (32.0-36.0); MEAN CELL VOLUME 87.3 fl (80-96); MEAN PLT VOLUME 8.7 fl (7.5-11.1); MONO % 12.9 % (3.8-10.2); NEUT % 64.7 % (42.8-82.8); PLATELET COUNT 151 10^3/uL (134-434); RBC 3.89 M/mm3 (3.60-5.2); RDW 15.9 % (11.6-15.6); WHITE BLOOD COUNT 5.8 K/mm3 (4.0-10.0)
[2022-03-18 08:54] LABS: ALBUMIN 3.6 g/dl (3.4-5.0); BLOOD UREA NITROGEN 16.1 mg/dL (7-18); CALCIUM 9.3 mg/dL (8.5-10.1); MAGNESIUM 2.1 mg/dL (1.8-2.4)
[2022-03-18 08:57] LABS: CREATININE 1.1 mg/dL (0.55-1.3); PHOSPHOROUS 3.9 mg/dL (2.5-4.9)
[2022-03-18 08:58] LABS: BILIRUBIN,TOTAL 0.4 mg/dL (0.2-1); TOT PROT 7.5 g/dl (6.4-8.2)
[2022-03-18 09:46] LABS: PLATELET ESTIMATE ADEQUATE
[2022-03-18] MEDS ORDERED: PATIENT'S OWN MEDICATION (NON-FORMULARY) (Losartan Potassium [Losartan Potassium] 100 MG T PO SCH (10:00)
[2022-03-18] MEDS: amLODIPine BESYLATE 2.5 MG TABLET (FP) PO SCH (10:45)
[2022-03-18] MEDS: LOSARTAN POTASSIUM 50 MG TABLET PO SCH (10:45)
[2022-03-18] MEDS ORDERED: CARVEDILOL 3.125 MG TABLET (FP) PO SCH (10:45)
[2022-03-18] MEDS: ENOXAPARIN NA (PORCINE) 40 MG/0.4 ML DISP.SYRIN SQ SCH (10:45)
[2022-03-18] MEDS: ATORVASTATIN CA 10 MG TABLET (FP) PO SCH (10:45)
[2022-03-18] MEDS: ASPIRIN 81 MG CHEWABLE TABLETS PO SCH (10:45)
[2022-03-18] MEDS: CEFTRIAXONE 1 GM in DEXTROSE 5%-WATER - 50 ML IVPB SCH (10:45)
[2022-03-18] MEDS: NYSTATIN POWDER 100,000 UNITS/GM - 15 GM TOPICAL POWDER TP SCH (11:04)
[2022-03-18 11:38] LABS: N-TERMINAL BNP 1044.4 pg/ml (5-125)
[2022-03-18 12:00] VITALS: BMI 33.9
[2022-03-18 12:06] LABS: EPI CELLS 3 /uL (0-25.1); HYALINE CASTS 0 /uL (0-3.1); PH,URINE 5.5 (5.0-8.0); URINE APPEARANCE CLEAR; URINE BACTERIA 3 /uL (0-1359); URINE BILIRUBIN NEGATIVE (NEGATIVE); URINE COLOR YELLOW; URINE GLUCOSE (UA) NEGATIVE (NEGATIVE); URINE KETONE NEGATIVE (NEGATIVE); URINE LEUK ESTERASE NEGATIVE (NEGATIVE); URINE NITRITE NEGATIVE (NEGATIVE); URINE PROTEIN 1+ (NEGATIVE); URINE RBC 3 /uL (0-23.9); URINE UROBILINOGEN 0.2 mg/dL (0.2-1.0); URINE WBC 3 /uL (0-25.8)
[2022-03-19] MEDS: INSULIN SLIDING SCALE (NOVOLOG) 1 VIAL SQ SCH ×3 (06:05→17:27)
[2022-03-19 09:02] LABS: BASO % 0.4 % (0-2.0); EOS % 0.6 % (0-4.5); HEMATOCRIT 35.7 % (32.4-45.2); HEMOGLOBIN 12.3 GM/dL (10.7-15.3); LYMPH % 23.3 % (8-40); MCH 29.6 pg (25.7-33.7); MCHC 34.3 g/dl (32.0-36.0); MEAN CELL VOLUME 86.2 fl (80-96); MEAN PLT VOLUME 8.7 fl (7.5-11.1); MONO % 11.9 % (3.8-10.2); NEUT % 63.8 % (42.8-82.8); PLATELET COUNT 168 10^3/uL (134-434); RBC 4.15 M/mm3 (3.60-5.2); RDW 15.7 % (11.6-15.6); WHITE BLOOD COUNT 5.1 K/mm3 (4.0-10.0)
[2022-03-19 09:06] LABS: ALBUMIN 3.3 g/dl (3.4-5.0)
[2022-03-19 09:07] LABS: BLOOD UREA NITROGEN 22.9 mg/dL (7-18); MAGNESIUM 2.2 mg/dL (1.8-2.4)
[2022-03-19 09:08] LABS: PHOSPHOROUS 3.6 mg/dL (2.5-4.9)
[2022-03-19 09:10] LABS: BILIRUBIN,TOTAL 0.4 mg/dL (0.2-1); TOT PROT 7.2 g/dl (6.4-8.2)
[2022-03-19] MEDS: ATORVASTATIN CA 10 MG TABLET (FP) PO SCH (10:24)
[2022-03-19] MEDS: ASPIRIN 81 MG CHEWABLE TABLETS PO SCH (10:24)
[2022-03-19] MEDS: CEFTRIAXONE 1 GM in DEXTROSE 5%-WATER - 50 ML IVPB SCH (10:24)
[2022-03-19] MEDS: ENOXAPARIN NA (PORCINE) 40 MG/0.4 ML DISP.SYRIN SQ SCH (10:24)
[2022-03-19] MEDS: LOSARTAN POTASSIUM 50 MG TABLET PO SCH (10:24)
[2022-03-19] MEDS: amLODIPine BESYLATE 2.5 MG TABLET (FP) PO SCH (10:24)
[2022-03-19] MEDS: NYSTATIN POWDER 100,000 UNITS/GM - 15 GM TOPICAL POWDER TP SCH (10:46)
[2022-03-20] MEDS: INSULIN SLIDING SCALE (NOVOLOG) 1 VIAL SQ SCH ×3 (06:34→16:57)
[2022-03-20 08:20] LABS: BASO % 0.2 % (0-2.0); EOS % 1.6 % (0-4.5); HEMOGLOBIN 12.5 GM/dL (10.7-15.3); LYMPH % 31.1 % (8-40); MCH 29.4 pg (25.7-33.7); MCHC 33.6 g/dl (32.0-36.0); MEAN CELL VOLUME 87.5 fl (80-96); MEAN PLT VOLUME 8.6 fl (7.5-11.1); MONO % 10.7 % (3.8-10.2); NEUT % 56.4 % (42.8-82.8); PLATELET COUNT 174 10^3/uL (134-434); RBC 4.23 M/mm3 (3.60-5.2); RDW 15.2 % (11.6-15.6); WHITE BLOOD COUNT 6.1 K/mm3 (4.0-10.0)
[2022-03-20 08:35] LABS: CALCIUM 8.9 mg/dL (8.5-10.1)
[2022-03-20 08:36] LABS: ALBUMIN 3.4 g/dl (3.4-5.0); BLOOD UREA NITROGEN 28.3 mg/dL (7-18); MAGNESIUM 2.3 mg/dL (1.8-2.4)
[2022-03-20 08:39] LABS: PHOSPHOROUS 3.4 mg/dL (2.5-4.9)
[2022-03-20 08:40] LABS: TOT PROT 7.4 g/dl (6.4-8.2)
[2022-03-20 08:41] LABS: BILIRUBIN,TOTAL 0.3 mg/dL (0.2-1)
[2022-03-20] MEDS: amLODIPine BESYLATE 2.5 MG TABLET (FP) PO SCH (09:21)
[2022-03-20] MEDS: ASPIRIN 81 MG CHEWABLE TABLETS PO SCH (09:21)
[2022-03-20] MEDS: ATORVASTATIN CA 20 MG TABLET (FP) PO SCH (09:21)
[2022-03-20] MEDS: ENOXAPARIN NA (PORCINE) 40 MG/0.4 ML DISP.SYRIN SQ SCH (09:22)
[2022-03-20] MEDS: LOSARTAN POTASSIUM 50 MG TABLET PO SCH (09:22)
[2022-03-20] MEDS: NYSTATIN POWDER 100,000 UNITS/GM - 15 GM TOPICAL POWDER TP SCH (09:22)
[2022-03-20 09:27] LABS: PLATELET ESTIMATE ADEQUATE
[2022-03-21] MEDS: INSULIN SLIDING SCALE (NOVOLOG) 1 VIAL SQ SCH ×3 (06:34→17:20)
[2022-03-21 08:31] LABS: BASO % 0.4 % (0-2.0); EOS % 3.4 % (0-4.5); HEMATOCRIT 36.3 % (32.4-45.2); HEMOGLOBIN 12.4 GM/dL (10.7-15.3); LYMPH % 27.7 % (8-40); MCH 29.5 pg (25.7-33.7); MCHC 34.1 g/dl (32.0-36.0); MEAN CELL VOLUME 86.5 fl (80-96); MEAN PLT VOLUME 8.7 fl (7.5-11.1); NEUT % 60.5 % (42.8-82.8); PLATELET COUNT 157 10^3/uL (134-434); RDW 15.2 % (11.6-15.6); WHITE BLOOD COUNT 5.3 K/mm3 (4.0-10.0)
[2022-03-21 08:37] LABS: ALBUMIN 3.4 g/dl (3.4-5.0); BLOOD UREA NITROGEN 31.6 mg/dL (7-18); CALCIUM 9.2 mg/dL (8.5-10.1)
[2022-03-21 08:38] LABS: MAGNESIUM 2.2 mg/dL (1.8-2.4)
[2022-03-21 08:41] LABS: CREATININE 1.1 mg/dL (0.55-1.3); PHOSPHOROUS 3.2 mg/dL (2.5-4.9)
[2022-03-21 08:43] LABS: BILIRUBIN,TOTAL 0.4 mg/dL (0.2-1)
[2022-03-21 08:44] LABS: TOT PROT 7.1 g/dl (6.4-8.2)
[2022-03-21] MEDS: ATORVASTATIN CA 20 MG TABLET (FP) PO SCH (09:59)
[2022-03-21] MEDS: amLODIPine BESYLATE 2.5 MG TABLET (FP) PO SCH (09:59)
[2022-03-21] MEDS: LOSARTAN POTASSIUM 50 MG TABLET PO SCH (09:59)
[2022-03-21] MEDS: ASPIRIN 81 MG CHEWABLE TABLETS PO SCH (09:59)
[2022-03-21] MEDS: ENOXAPARIN NA (PORCINE) 40 MG/0.4 ML DISP.SYRIN SQ SCH (09:59)
[2022-03-21] MEDS: NYSTATIN POWDER 100,000 UNITS/GM - 15 GM TOPICAL POWDER TP SCH (10:00)
[2022-03-22] MEDS: INSULIN SLIDING SCALE (NOVOLOG) 1 VIAL SQ SCH ×3 (06:18→17:55)
[2022-03-22 08:06] LABS: BASO % 0.2 % (0-2.0); EOS % 6.3 % (0-4.5); HEMATOCRIT 36.3 % (32.4-45.2); LYMPH % 25.4 % (8-40); MCH 28.6 pg (25.7-33.7); MCHC 33.1 g/dl (32.0-36.0); MEAN CELL VOLUME 86.5 fl (80-96); MEAN PLT VOLUME 8.7 fl (7.5-11.1); MONO % 7.6 % (3.8-10.2); NEUT % 60.5 % (42.8-82.8); PLATELET COUNT 173 10^3/uL (134-434); RDW 15.1 % (11.6-15.6); WHITE BLOOD COUNT 5.1 K/mm3 (4.0-10.0)
[2022-03-22 08:22] LABS: CALCIUM 8.5 mg/dL (8.5-10.1)
[2022-03-22 08:23] LABS: ALBUMIN 3.1 g/dl (3.4-5.0); MAGNESIUM 2.2 mg/dL (1.8-2.4)
[2022-03-22 08:27] LABS: BILIRUBIN,TOTAL 0.4 mg/dL (0.2-1); TOT PROT 6.8 g/dl (6.4-8.2)
[2022-03-22] MEDS: ATORVASTATIN CA 20 MG TABLET (FP) PO SCH (11:27)
[2022-03-22] MEDS: ASPIRIN 81 MG CHEWABLE TABLETS PO SCH (11:27)
[2022-03-22] MEDS: NYSTATIN POWDER 100,000 UNITS/GM - 15 GM TOPICAL POWDER TP SCH (11:27)
[2022-03-22] MEDS: amLODIPine BESYLATE 2.5 MG TABLET (FP) PO SCH (11:27)
[2022-03-22] MEDS: LOSARTAN POTASSIUM 50 MG TABLET PO SCH (11:27)
[2022-03-22] MEDS: ENOXAPARIN NA (PORCINE) 40 MG/0.4 ML DISP.SYRIN SQ SCH (11:27)
[2022-03-23] MEDS: INSULIN SLIDING SCALE (NOVOLOG) 1 VIAL SQ SCH ×3 (06:33→17:23)
[2022-03-23] MEDS ORDERED: ALBUTEROL SO4 HFA INHALER IH PRN (07:11)
[2022-03-23] MEDS ORDERED: ACETAMINOPHEN 325 MG TABLET (FP) PO PRN (07:11)
[2022-03-23] MEDS: amLODIPine BESYLATE 2.5 MG TABLET (FP) PO SCH (09:48)
[2022-03-23] MEDS: LOSARTAN POTASSIUM 50 MG TABLET PO SCH (09:49)
[2022-03-23] MEDS: ASPIRIN 81 MG CHEWABLE TABLETS PO SCH (09:49)
[2022-03-23] MEDS: ENOXAPARIN NA (PORCINE) 40 MG/0.4 ML DISP.SYRIN SQ SCH (09:49)
[2022-03-23] MEDS: NYSTATIN POWDER 100,000 UNITS/GM - 15 GM TOPICAL POWDER TP SCH (17:22)
[2022-03-23] MEDS ORDERED: ATORVASTATIN CA 20 MG TABLET (FP) PO SCH (22:00)
[2022-03-23] MEDS ORDERED: SODIUM POLYSTYRENE SULFONATE 15 GM/60 ML BOTTLE ONE (23:09)
[2022-03-24] MEDS: INSULIN SLIDING SCALE (NOVOLOG) 1 VIAL SQ SCH ×4 (05:38→17:43)
[2022-03-24] MEDS: LOSARTAN POTASSIUM 50 MG TABLET PO SCH (10:08)
[2022-03-24] MEDS: amLODIPine BESYLATE 2.5 MG TABLET (FP) PO SCH (10:08)
[2022-03-24] MEDS: ASPIRIN 81 MG CHEWABLE TABLETS PO SCH (10:08)
[2022-03-24] MEDS: ENOXAPARIN NA (PORCINE) 40 MG/0.4 ML DISP.SYRIN SQ SCH (10:08)
[2022-03-24] MEDS: NYSTATIN POWDER 100,000 UNITS/GM - 15 GM TOPICAL POWDER TP SCH (10:09)
[2022-03-24 15:24] VITALS: RESP 16
[2022-03-24 15:41] VITALS: BP 131/50; PULSE 68; TEMP 98.4
== END 2022-03-24 16:45 | DRG 312 ==
LOC: JER 04:20 → JERBED 09:58 → OBSVTOIN 09:58 → J4W 20:31 → J5S 03-23 04:11
PROVIDERS: ADMIT Internal Medicine; ATTEND Internal Medicine
DX: R55 Syncope and collapse (principal); G93.41 Metabolic encephalopathy; U07.1 COVID-19; I24.8 Other forms of acute ischemic heart disease; I10 Essential (primary) hypertension; E78.5 Hyperlipidemia, unspecified; F31.9 Bipolar disorder, unspecified; Z79.84 Long term (current) use of oral hypoglycemic drugs; E66.9 Obesity, unspecified; R26.9 Unspecified abnormalities of gait and mobility; I45.10 Unspecified right bundle-branch block; Z68.33 Body mass index [BMI] 33.0-33.9, adult; B36.9 Superficial mycosis, unspecified; I35.0 Nonrheumatic aortic (valve) stenosis
CPT/HCPCS: 0241U-QW; 36415; 70450-TC; 71045-TC-FY; 72125-TC; 72170-TC-FY; 72192-TC; 73502-TC-RT-FY; 80053; 80061; 81003; 82550; 82553; 82728; 82962; 83615; 83735; 83880; 84100; 84443; 84484; 85025; 85045; 86140; 87040; 87086; 93005; 93010; 93306-TC; 93880-TC; 97116-GP; 97162-GP; 99285-25

== ENCOUNTER 2024-02-25 19:56 | Inpatient (IN) | payer OTHER ==
[2024-02-25 20:09] VITALS: BMI 28.9
[2024-02-25] MEDS ORDERED: ALBUTEROL SO4 2.5/IPRATROPIUM 0.5 INH SOL 3 ML VIAL.NEB. NEB ONE (20:49)
[2024-02-25] MEDS ORDERED: methylPREDNISolone NA SUCC 125 MG/2 ML VIAL ONE (21:18)
[2024-02-25] MEDS: methylPREDNISolone NA SUCC 125 MG/2 ML VIAL IVPB ONE (21:19)
[2024-02-25] MEDS: ALBUTEROL SO4 2.5/IPRATROPIUM 0.5 INH SOL 3 ML VIAL.NEB. NEB ONE (21:26)
[2024-02-25] MEDS ORDERED: ACETAMINOPHEN INJECTION 100 ML ONE (21:28)
[2024-02-25] MEDS: ACETAMINOPHEN 1000 MG/100 ML BAG IVPB ONE (21:40)
[2024-02-25] MEDS: SODIUM CHLORIDE 0.9% 500 ML INFUS.BAG IV ONE (22:00)
[2024-02-25] MEDS ORDERED: AMIODARONE HCL 150 MG/3 ML VIAL ONE (22:28)
[2024-02-25 22:33] LABS: BASO % 0.2 % (0-2.0); EOS % 0.3 % (0-4.5); HEMATOCRIT 26.6 % (32.4-45.2); HEMOGLOBIN 8.7 GM/dL (10.7-15.3); LYMPH % 9.6 % (8-40); MCH 29.9 pg (25.7-33.7); MCHC 32.9 g/dl (32.0-36.0); MEAN CELL VOLUME 90.9 fl (80-96); MEAN PLT VOLUME 7.3 fl (7.5-11.1); MONO % 7.3 % (3.8-10.2); NEUT % 82.6 % (42.8-82.8); PLATELET COUNT 168 10^3/uL (134-434); RBC 2.92 M/mm3 (3.60-5.2); RDW 19.2 % (11.6-15.6); WHITE BLOOD COUNT 6.8 K/mm3 (4.0-10.0)
[2024-02-25] MEDS: AMIODARONE HCL 150 MG/3 ML VIAL IVPUSH ONE ×2 (22:43→23:39)
[2024-02-25 22:45] LABS: VENOUS BASE EXCESS -6.6 mmol/L (-2-2); VENOUS O2 SATURATION 64.8 % (70-80); VENOUS PH 7.269 (7.310-7.410)
[2024-02-25 22:51] LABS: POTASSIUM 3.3 mmol/L (3.5-5.1)
[2024-02-25 22:51] LABS: INR 1.13 (0.83-1.09); PROTHROMBIN TIME (PATIENT) 12.7 SEC (9.7-13.0)
[2024-02-25 22:53] LABS: ALBUMIN 3.4 g/dl (3.4-5.0); CALCIUM 9.6 mg/dL (8.5-10.1)
[2024-02-25 22:54] LABS: ACTIVATED PTT 32.6 SECONDS (25.2-36.5)
[2024-02-25 22:54] LABS: BLOOD UREA NITROGEN 25.8 mg/dL (7-18)
[2024-02-25 22:56] LABS: CREATININE 1.6 mg/dL (0.55-1.3)
[2024-02-25 22:58] LABS: BILIRUBIN,TOTAL 0.6 mg/dL (0.2-1); TOT PROT 6.7 g/dl (6.4-8.2)
[2024-02-25 23:12] LABS: EPI CELLS 13 /uL (0-25.1); HYALINE CASTS 2 /uL (0-3.1); URINE APPEARANCE CLEAR; URINE BACTERIA 7 /uL (0-1359); URINE BILIRUBIN NEGATIVE (NEGATIVE); URINE COLOR YELLOW; URINE GLUCOSE (UA) NEGATIVE (NEGATIVE); URINE KETONE TRACE (NEGATIVE); URINE LEUK ESTERASE NEGATIVE (NEGATIVE); URINE NITRITE NEGATIVE (NEGATIVE); URINE PROTEIN 3+ (NEGATIVE); URINE RBC 11 /uL (0-23.9); URINE UROBILINOGEN 0.2 mg/dL (0.2-1.0); URINE WBC 21 /uL (0-25.8)
[2024-02-25 23:14] LABS: LACTIC ACID 4.6 mmol/L (0.4-2.0)
[2024-02-25] MEDS: PROCAINAMIDE HCL 1,000 MG in DEXTROSE 5%-WATER - 48 ML IVPB ONE (23:24)
[2024-02-26] MEDS: POTASSIUM CHLORIDE ORAL LIQUID 20 MEQ/15 ML PO ONE (00:30)
[2024-02-26] MEDS ORDERED: CEFTRIAXONE 1,000 MG in DEXTROSE 5%-WATER - 50 ML IVPB ONE (01:35)
[2024-02-26] MEDS ORDERED: VANCOMYCIN 1 GRAM (PRE-DOCKED) 1,000 MG/250 ML BAG IVPB ONE (02:20)
[2024-02-26] MEDS ORDERED: PIPERACILLIN/TAZOB 3.375 GM 3.375 GM/50 ML BAG IVPB ONE (02:20)
[2024-02-26] MEDS: PIPERACILLIN/TAZOB 3.375 GM 3.375 GM in DEXTROSE 5%-WATER - 50 ML IVPB ONE (02:25)
[2024-02-26] MEDS: SODIUM CHLORIDE 1,000 ML IV STA (02:30)
[2024-02-26] MEDS: VANCOMYCIN 1,000 MG in DEXTROSE 5%-WATER - 250 ML IVPB ONE (02:38)
[2024-02-26 03:02] LABS: LACTIC ACID 4.7 mmol/L (0.4-2.0)
[2024-02-26] MEDS ORDERED: METOPROLOL TARTRATE 25 MG TABLET (FP) ONE (04:37)
[2024-02-26] MEDS: METOPROLOL TARTRATE 25 MG TABLET (FP) PO ONE (04:42)
[2024-02-26 06:19] LABS: LACTIC ACID 4.2 mmol/L (0.4-2.0)
[2024-02-26] MEDS: INSULIN ASPART SLIDING SCALE (NOVOLOG) 1 VIAL SQ SCH (06:54)
[2024-02-26] MEDS ORDERED: ALBUTEROL SO4 2.5/IPRATROPIUM 0.5 INH SOL 3 ML VIAL.NEB. NEB SCH (08:00)
[2024-02-26] MEDS: LEVALBUTEROL HCL 0.31 MG/3 ML VIAL.NEB IH SCH (08:00)
[2024-02-26] MEDS: MAGNESIUM SULFATE IN WATER 2 GM/50 ML IVPB IVPB ONE (08:01)
[2024-02-26] MEDS: INSULIN (LEVEMIR) 100 UNITS/ML UNITS SQ ONE ×2 (08:05→08:06)
[2024-02-26 08:30] LABS: HEMATOCRIT 27.6 % (32.4-45.2); MCH 29.9 pg (25.7-33.7); MCHC 32.5 g/dl (32.0-36.0); MEAN PLT VOLUME 7.8 fl (7.5-11.1); PLATELET COUNT 151 10^3/uL (134-434); RBC 2.99 M/mm3 (3.60-5.2); RDW 19.6 % (11.6-15.6)
[2024-02-26 08:47] LABS: CHLORIDE 108 mmol/L (98-107); POTASSIUM 4.6 mmol/L (3.5-5.1); SODIUM 137 mmol/L (136-145)
[2024-02-26 08:48] LABS: RETICULOCYTES 2.76 % (0.5-1.5)
[2024-02-26 08:49] LABS: CALCIUM 8.5 mg/dL (8.5-10.1)
[2024-02-26 08:50] LABS: ALBUMIN 3.4 g/dl (3.4-5.0)
[2024-02-26 08:51] LABS: ANION GAP 9 mmol/L (4-13); CO2 20 mmol/L (21-32); MAGNESIUM 1.9 mg/dL (1.8-2.4)
[2024-02-26 08:53] LABS: CHOLESTEROL 145 mg/dL (50-200); PHOSPHOROUS 4.4 mg/dL (2.5-4.9)
[2024-02-26 08:54] LABS: BILIRUBIN,TOTAL 0.6 mg/dL (0.2-1); CREATININE 1.7 mg/dL (0.55-1.3); IRON SERUM 30 ug/dL (50-175); LDL CHOLESTEROL (ONLY SJRH) 77 mg/dL (5-100); TOTAL IRON BINDING CAPACITY 229 ug/dL (250-450)
[2024-02-26 08:55] LABS: HDL CHOLESTEROL 58 mg/dL (40-60); SGOT/AST 30 U/L (15-37); SGPT/ALT 20 U/L (13-61)
[2024-02-26 08:56] LABS: ALK PHOS 71 U/L (45-117); TOT PROT 6.4 g/dl (6.4-8.2)
[2024-02-26 08:58] LABS: GLUCOSE,RANDOM 413 mg/dL (74-106)
[2024-02-26 09:11] LABS: LACTIC ACID 2.4 mmol/L (0.4-2.0)
[2024-02-26] MEDS: methylPREDNISolone NA SUCC 40 MG/1 ML VIAL IVPUSH SCH ×2 (10:31→21:23)
[2024-02-26] MEDS: amLODIPine BESYLATE 2.5 MG TABLET (FP) PO SCH (10:34)
[2024-02-26] MEDS: ASPIRIN COATED 81 MG TABLET.EC PO SCH (10:34)
[2024-02-26] MEDS: CEFTRIAXONE 1 GM in DEXTROSE 5%-WATER - 50 ML IVPB SCH (10:34)
[2024-02-26] MEDS: LOSARTAN POTASSIUM 50 MG TABLET PO SCH (10:34)
[2024-02-26] MEDS: AZITHROMYCIN IVPB 500 MG/250 ML BAG IVPB ONE (10:36)
[2024-02-26 13:17] LABS: LACTIC ACID 2.4 mmol/L (0.4-2.0)
[2024-02-26] MEDS ORDERED: HEPARIN NA (PORCINE) 5,000 UNITS/ML 1ML VIAL IVPUSH PRN (13:54)
[2024-02-26] MEDS: HEPARIN NA (PORCINE) 5,000 UNITS/ML 1ML VIAL IVPUSH ONE ×2 (15:05→15:07)
[2024-02-26] MEDS: HEPARIN INFUSION - 25,000 UNITS/500 ML INFUS.BAG IVPB SCH (15:05)
[2024-02-26] MEDS: INSULIN (LEVEMIR) 100 UNITS/ML UNITS SQ SCH (21:22)
[2024-02-26] MEDS: ATORVASTATIN CA 40 MG TABLET (FP) PO SCH (21:23)
[2024-02-26] MEDS: METOPROLOL TARTRATE 25 MG TABLET (FP) PO SCH (21:24)
[2024-02-26] MEDS ORDERED: INSULIN (LEVEMIR) 100 UNITS/ML UNITS SQ SCH (22:00)
[2024-02-27] MEDS: ALBUTEROL SO4 2.5/IPRATROPIUM 0.5 INH SOL 3 ML VIAL.NEB. NEB PRN (07:20)
[2024-02-27] MEDS ORDERED: AZITHROMYCIN IVPB 250 MG in DEXTROSE 5%-WATER - 250 ML IVPB SCH (10:00)
[2024-02-27 10:49] LABS: HEMATOCRIT 25.1 % (32.4-45.2); HEMOGLOBIN 8.3 GM/dL (10.7-15.3); MCH 29.8 pg (25.7-33.7); MCHC 33.2 g/dl (32.0-36.0); MEAN CELL VOLUME 89.8 fl (80-96); MEAN PLT VOLUME 7.8 fl (7.5-11.1); PLATELET COUNT 169 10^3/uL (134-434); RBC 2.79 M/mm3 (3.60-5.2); RDW 19.8 % (11.6-15.6); WHITE BLOOD COUNT 8.2 K/mm3 (4.0-10.0)
[2024-02-27 11:36] LABS: CALCIUM 8.8 mg/dL (8.5-10.1); CREATININE 1.6 mg/dL (0.55-1.3); MAGNESIUM 2.7 mg/dL (1.8-2.4); PHOSPHOROUS 3.2 mg/dL (2.5-4.9); POTASSIUM 4.4 mmol/L (3.5-5.1)
[2024-02-27] MEDS: INSULIN (NOVOLOG) ASPART 100 UNITS/ML 10ML VIAL SQ SCH (16:36)
[2024-02-27] MEDS: FUROSEMIDE 40 MG/4 ML INJECTABLE VIAL IVPUSH SCH (19:30)
[2024-02-27] MEDS: INSULIN (LEVEMIR) 100 UNITS/ML UNITS SQ SCH (21:34)
[2024-02-28 08:27] LABS: HEMATOCRIT 24.5 % (32.4-45.2); HEMOGLOBIN 8.3 GM/dL (10.7-15.3); MCHC 33.7 g/dl (32.0-36.0); MEAN CELL VOLUME 88.9 fl (80-96); MEAN PLT VOLUME 8.1 fl (7.5-11.1); PLATELET COUNT 168 10^3/uL (134-434); RBC 2.76 M/mm3 (3.60-5.2); RDW 19.5 % (11.6-15.6); WHITE BLOOD COUNT 7.4 K/mm3 (4.0-10.0)
[2024-02-28 08:35] LABS: POTASSIUM 4.2 mmol/L (3.5-5.1)
[2024-02-28 08:39] LABS: CALCIUM 9.3 mg/dL (8.5-10.1)
[2024-02-28 08:40] LABS: BLOOD UREA NITROGEN 46.7 mg/dL (7-18); MAGNESIUM 2.6 mg/dL (1.8-2.4)
[2024-02-28 08:43] LABS: CREATININE 1.6 mg/dL (0.55-1.3); PHOSPHOROUS 3.3 mg/dL (2.5-4.9)
[2024-02-28 08:57] VITALS: RESP 18
[2024-02-28] MEDS: HEPARIN NA (PORCINE) 5,000 UNITS/ML 1ML VIAL IVPUSH PRN (09:09)
[2024-02-28] MEDS: predniSONE 20 MG TABLET (UD) PO SCH (09:20)
[2024-02-28] MEDS ORDERED: ALBUTEROL SO4 HFA INHALER IH PRN (16:49)
[2024-02-29] MEDS: APIXABAN 5 MG TABLET PO SCH (10:35)
[2024-02-29 11:22] VITALS: BP 136/68; PULSE 68; TEMP 97.3
[2024-02-29 15:03] LABS: POTASSIUM 3.9 mmol/L (3.5-5.1)
[2024-02-29 16:03] LABS: ALBUMIN 3.4 g/dl (3.4-5.0); BLOOD UREA NITROGEN 44.8 mg/dL (7-18); CALCIUM 9.3 mg/dL (8.5-10.1); CREATININE 1.4 mg/dL (0.55-1.3); MAGNESIUM 2.6 mg/dL (1.8-2.4); TOT PROT 6.8 g/dl (6.4-8.2)
[2024-02-29 16:06] LABS: PHOSPHOROUS 4.1 mg/dL (2.5-4.9)
[2024-02-29 16:09] LABS: BILIRUBIN,TOTAL 0.5 mg/dL (0.2-1)
== END 2024-02-29 15:58 | disposition home or self-care (01) | DRG 308 ==
LOC: JER 19:56 → JERBED 02-26 01:47 → J4W 02-26 05:30
PROVIDERS: ADMIT Internal Medicine; ATTEND Internal Medicine
DX: I48.0 Paroxysmal atrial fibrillation (principal); G93.41 Metabolic encephalopathy; J45.901 Unspecified asthma with (acute) exacerbation; E87.20 Acidosis, unspecified; Z68.41 Body mass index [BMI] 40.0-44.9, adult; E66.01 Morbid (severe) obesity due to excess calories; I45.2 Bifascicular block; I47.29 Other ventricular tachycardia; E78.5 Hyperlipidemia, unspecified; I25.10 Atherosclerotic heart disease of native coronary artery without angina pectoris; F31.9 Bipolar disorder, unspecified; D63.8 Anemia in other chronic diseases classified elsewhere; I44.7 Left bundle-branch block, unspecified; E86.0 Dehydration; I12.9 Hypertensive chronic kidney disease with stage 1 through stage 4 chronic kidney disease, or unspecified chronic kidney disease; N18.32 Chronic kidney disease, stage 3b; E11.22 Type 2 diabetes mellitus with diabetic chronic kidney disease; R50.9 Fever, unspecified; E11.65 Type 2 diabetes mellitus with hyperglycemia; Z85.42 Personal history of malignant neoplasm of other parts of uterus
CPT/HCPCS: 0241U-QW; 36415; 70450-TC; 71045-TC-FY; 71250-TC; 74176-TC; 80048; 80053; 80061; 81003; 82728; 82803; 82962; 83010; 83036; 83540; 83550; 83605; 83735; 83880; 84100; 84436; 84443; 84484; 85025; 85027; 85045; 85610; 85730; 87040; 87086; 87899; 93005; 93010; 93306-TC; 94640; 99285-25; J0131; J1644

== ENCOUNTER 2024-10-18 10:05 | Inpatient (IN) | payer OTHER ==
[2024-10-18] MEDS ORDERED: DEXAMETHASONE SOD PHOSPHATE 10 MG/1 ML VIAL IVPUSH ONE (10:15)
[2024-10-18] MEDS ORDERED: ALBUTEROL SO4 2.5/IPRATROPIUM 0.5 INH SOL 3 ML VIAL.NEB. NEB ONE (10:38)
[2024-10-18] MEDS ORDERED: ACETAMINOPHEN INJECTION 100 ML ONE (10:38)
[2024-10-18] MEDS ORDERED: methylPREDNISolone NA SUCC 125 MG/2 ML VIAL ONE (10:38)
[2024-10-18] MEDS: ALBUTEROL SO4 2.5/IPRATROPIUM 0.5 INH SOL 3 ML VIAL.NEB. NEB SCH (10:45)
[2024-10-18] MEDS: methylPREDNISolone NA SUCC 125 MG/2 ML VIAL IVPB ONE (11:10)
[2024-10-18] MEDS: ACETAMINOPHEN 1000 MG/100 ML BAG IVPB ONE (11:16)
[2024-10-18 11:24] LABS: VENOUS BASE EXCESS -2.4 mmol/L (-2-2); VENOUS O2 SATURATION 37.3 % (70-80); VENOUS PCO2 40.6 mmHg (38-52); VENOUS PH 7.366 (7.310-7.410)
[2024-10-18 11:24] LABS: HEMATOCRIT 25.6 % (34.1-44.9); HEMOGLOBIN 7.7 g/dL (11.2-15.7); MCHC 30.1 g/dl (32.2-35.5); MEAN CELL VOLUME 95.9 fl (79.4-94.8); MEAN PLT VOLUME 10.4 fl (9.4-12.3); PLATELET COUNT 145 x10^3/uL (182-369); RDW 16.6 % (12.4-16.6)
[2024-10-18 11:35] LABS: INR 1.33 (0.83-1.09); PROTHROMBIN TIME (PATIENT) 14.6 SEC (9.7-13.0)
[2024-10-18 11:43] LABS: POTASSIUM 5.9 mmol/L (3.5-5.1)
[2024-10-18 11:46] LABS: CALCIUM 9.4 mg/dL (8.5-10.1)
[2024-10-18 11:47] LABS: ALBUMIN 3.6 g/dl (3.4-5.0); BLOOD UREA NITROGEN 51.8 mg/dL (7-18); MAGNESIUM 2.6 mg/dL (1.8-2.4)
[2024-10-18 11:50] LABS: CREATININE 2.2 mg/dL (0.55-1.3)
[2024-10-18 11:51] LABS: BILIRUBIN,TOTAL 0.6 mg/dL (0.2-1)
[2024-10-18] MEDS ORDERED: DEXTROSE 50%-WATER - 25 GM/50 ML VIAL ONE (12:22)
[2024-10-18] MEDS ORDERED: CALCIUM GLUC IN NACL, ISO-OSM 1 GM/50 ML BAG IVPB ONE (12:23)
[2024-10-18 12:37] LABS: EPI CELLS 6 /uL (0-25.1); HYALINE CASTS 3 /uL (0-3.1); PH,URINE 5.5 (5.0-8.0); URINE APPEARANCE CLEAR; URINE BACTERIA 3 /uL (0-1359); URINE BILIRUBIN NEGATIVE (NEGATIVE); URINE COLOR YELLOW; URINE GLUCOSE (UA) NEGATIVE (NEGATIVE); URINE KETONE NEGATIVE (NEGATIVE); URINE LEUK ESTERASE NEGATIVE (NEGATIVE); URINE NITRITE NEGATIVE (NEGATIVE); URINE PROTEIN 1+ (NEGATIVE); URINE UROBILINOGEN 0.2 mg/dL (0.2-1.0); URINE WBC 6 /uL (0-25.8)
[2024-10-18] MEDS: DEXTROSE 50%-WATER - 25 GM/50 ML VIAL IVPUSH ONE (12:45)
[2024-10-18] MEDS: CALCIUM GLUC IN NACL, ISO-OSM 1 GM/50 ML BAG IVPB ONE (12:55)
[2024-10-18] MEDS: SODIUM CHLORIDE 0.9% 500 ML INFUS.BAG IV ONE ×3 (12:55→17:00)
[2024-10-18] MEDS ORDERED: INSULIN REGULAR HUMAN 100 UNITS/ML *VIAL ONE (13:05)
[2024-10-18] MEDS: INSULIN REGULAR HUMAN 100 UNITS/ML *VIAL IVPUSH ONE (13:07)
[2024-10-18 13:15] LABS: URINE RBC 22 /uL (0-23.9)
[2024-10-18] MEDS ORDERED: SODIUM ZIRCONIUM CYCLOSILICATE (LOKELMA) 5 GM PACKET ONE (14:02)
[2024-10-18] MEDS ORDERED: VANCOMYCIN 1 GM PREMIX (F) 1 GM/200 ML BAG ONE (14:02)
[2024-10-18] MEDS ORDERED: PIPERACILLIN/TAZOB 4.5 GM 4.5 GM/100 ML BAG IVPB ONE (14:02)
[2024-10-18] MEDS: SODIUM ZIRCONIUM CYCLOSILICATE (LOKELMA) 5 GM PACKET PO ONE (14:41)
[2024-10-18] MEDS: PIPERACILLIN/TAZOB 4.5 GM 4.5 GM in DEXTROSE 5%-WATER 100 ML IVPB ONE (14:41)
[2024-10-18 15:05] LABS: LACTIC ACID 2.2 mmol/L (0.4-2.0)
[2024-10-18] MEDS: VANCOMYCIN 1,000 MG in DEXTROSE 5%-WATER - 250 ML IVPB ONE (16:13)
[2024-10-18 17:00] LABS: BLOOD UREA NITROGEN 49.7 mg/dL (7-18); CALCIUM 9.2 mg/dL (8.5-10.1); POTASSIUM 4.9 mmol/L (3.5-5.1)
[2024-10-18 17:01] LABS: CREATININE 2.1 mg/dL (0.55-1.3); LACTIC ACID 3.2 mmol/L (0.4-2.0)
[2024-10-18] MEDS ORDERED: PANTOPRAZOLE SODIUM 40 MG VIAL ONE (18:45)
[2024-10-18] MEDS ORDERED: FUROSEMIDE 40 MG/4 ML INJECTABLE VIAL ONE (18:45)
[2024-10-18] MEDS: PANTOPRAZOLE SODIUM 40 MG VIAL IVPUSH SCH (18:50)
[2024-10-18] MEDS: FUROSEMIDE 40 MG/4 ML INJECTABLE VIAL IVPUSH ONE (18:50)
[2024-10-18] MEDS: INSULIN ASPART SLIDING SCALE (NOVOLOG) 1 VIAL SQ SCH (18:53)
[2024-10-18] MEDS ORDERED: INSULIN ASPART SLIDING SCALE (NOVOLOG) 1 VIAL SQ ONE (18:54)
[2024-10-18] MEDS ORDERED: PIPERACILLIN/TAZOB 2.25 GM 2.25 GM/50 ML BAG IVPB ONE (21:07)
[2024-10-18] MEDS: PIPERACILLIN/TAZOB 2.25 GM 2.25 GM in DEXTROSE 5%-WATER - 50 ML IVPB SCH (21:15)
[2024-10-19 01:29] VITALS: BMI 45.1
[2024-10-19 07:54] LABS: HEMATOCRIT 25.6 % (34.1-44.9); HEMOGLOBIN 8.2 g/dL (11.2-15.7); MEAN CELL VOLUME 91.8 fl (79.4-94.8); MEAN PLT VOLUME 10.4 fl (9.4-12.3); PLATELET COUNT 134 x10^3/uL (182-369); RDW 17.5 % (12.4-16.6)
[2024-10-19 08:08] LABS: POTASSIUM 5.3 mmol/L (3.5-5.1)
[2024-10-19 08:10] LABS: CALCIUM 9.5 mg/dL (8.5-10.1)
[2024-10-19 08:11] LABS: BLOOD UREA NITROGEN 50.6 mg/dL (7-18)
[2024-10-19] MEDS ORDERED: INSULIN REGULAR HUMAN 100 UNITS/ML *VIAL SQ ONE (08:17)
[2024-10-19] MEDS: metoPROLOL SUCCINATE 25 MG TAB.SR.24H (FP) PO SCH (10:19)
[2024-10-19] MEDS: SODIUM ZIRCONIUM CYCLOSILICATE (LOKELMA) 5 GM PACKET PO ONE (10:19)
[2024-10-19] MEDS ORDERED: metoPROLOL SUCCINATE 25 MG TAB.SR.24H (FP) PO SCH (10:30)
[2024-10-19] MEDS: CALCIUM GLUC IN NACL, ISO-OSM 1 GM/50 ML BAG IVPB ONE (10:49)
[2024-10-19] MEDS: INSULIN REGULAR HUMAN 100 UNITS/ML *VIAL SQ ONE (10:49)
[2024-10-19] MEDS: INSULIN GLARGINE (LANTUS) 100 UNITS/ML UNITS SQ ONE (11:01)
[2024-10-19] MEDS: FUROSEMIDE 40 MG/4 ML INJECTABLE VIAL IVPUSH SCH (11:04)
[2024-10-19] MEDS ORDERED: SODIUM ZIRCONIUM CYCLOSILICATE (LOKELMA) 5 GM PACKET PO ONE (11:55)
[2024-10-19 12:02] LABS: Reticulocyte % 1.92 % (0.5-1.7)
[2024-10-19 12:45] LABS: LACTIC ACID 2.3 mmol/L (0.4-2.0)
[2024-10-19] MEDS: NYSTATIN POWDER 100,000 UNITS/GM - 15 GM TOPICAL POWDER TP SCH (22:13)
[2024-10-20 02:08] VITALS: BP 125/68; PULSE 80; RESP 20; TEMP 98.2
[2024-10-20] MEDS ORDERED: PIPERACILLIN/TAZOB 2.25 GM 2.25 GM in DEXTROSE 5%-WATER - 50 ML IVPB SCH (21:00)
== END 2024-10-20 02:45 | disposition short-term general hospital (02) | DRG 280 ==
LOC: JER 10:05 → JERBED 16:45 → J4W 23:31
PROVIDERS: ADMIT Internal Medicine; ATTEND Internal Medicine
PROC: 30233N1 Transfusion of Nonautologous Red Blood Cells into Peripheral Vein, Percutaneous Approach (ICD-10-PCS; principal; 2024-10-18)
DX: I21.4 Non-ST elevation (NSTEMI) myocardial infarction (principal); G93.41 Metabolic encephalopathy; I50.33 Acute on chronic diastolic (congestive) heart failure; N17.9 Acute kidney failure, unspecified; Z68.42 Body mass index [BMI] 45.0-49.9, adult; I11.0 Hypertensive heart disease with heart failure; E87.5 Hyperkalemia; C54.1 Malignant neoplasm of endometrium; E11.9 Type 2 diabetes mellitus without complications; F31.9 Bipolar disorder, unspecified; D64.9 Anemia, unspecified; I50.9 Heart failure, unspecified; E66.01 Morbid (severe) obesity due to excess calories; E78.5 Hyperlipidemia, unspecified; I48.0 Paroxysmal atrial fibrillation
CPT/HCPCS: 0241U-QW; 36415; 36430; 70450-TC; 71045-TC-FY; 71250-TC; 74018-TC-FY; 76775-TC; 80048; 80053; 80178; 81003; 82272; 82607; 82728; 82746; 82803; 82962; 83540; 83550; 83605; 83735; 83880; 84484; 85025; 85027; 85610; 85730; 86850; 86900; 86901; 86922; 87040; 87086; 93005; 93010; 93306-TC; 97116-GP; 97163-GP; 99291; J0131; P9058

== ENCOUNTER 2025-01-31 15:57 | Emergency (ER) | payer OTHER ==
[2025-01-31 16:28] VITALS: BMI 32.9
[2025-01-31] MEDS ORDERED: ACETAMINOPHEN INJECTION 100 ML ONE (17:20)
[2025-01-31] MEDS: ACETAMINOPHEN 1000 MG/100 ML BAG IVPB ONE (17:36)
[2025-01-31 17:38] LABS: MCHC 31.3 g/dl (32.2-35.5); MEAN CELL VOLUME 94.0 fl (79.4-94.8); MEAN PLT VOLUME 9.5 fl (9.4-12.3); RDW 17.4 % (12.4-16.6)
[2025-01-31 17:56] LABS: GLUCOSE,RANDOM 86.0 mg/dL (74-106); TOT PROT 6.3 g/dl (6.4-8.2)
[2025-01-31 17:57] LABS: CO2 21.0 mmol/L (21-32)
[2025-01-31 17:59] LABS: ALK PHOS 73.0 U/L (40-150)
[2025-01-31 18:02] LABS: CREATININE 1.89 mg/dL (0.55-1.3); SGOT/AST 33.0 U/L (5-34); SGPT/ALT 23.0 U/L (0-55)
[2025-01-31 18:26] LABS: HCV DIAGNOSTIC IN-HOUSE W/RFLX NON-REACTIVE (NONREACTIVE)
[2025-01-31 18:27] LABS: HIV INTERPRETATION NEGATIVE (NEGATIVE)
[2025-01-31 22:58] VITALS: BP 108/50; PULSE 72; RESP 18; TEMP 98
== END 2025-01-31 22:59 | disposition short-term general hospital (02) ==
LOC: JER 15:57
PROC: 3E033NZ Introduction of Analgesics, Hypnotics, Sedatives into Peripheral Vein, Percutaneous Approach (ICD-10-PCS; principal; 2025-01-31)
DX: R21 Rash and other nonspecific skin eruption (principal); L29.9 Pruritus, unspecified; S40.821A Blister (nonthermal) of right upper arm, initial encounter; S40.822A Blister (nonthermal) of left upper arm, initial encounter; S30.820A Blister (nonthermal) of lower back and pelvis, initial encounter; S80.821A Blister (nonthermal), right lower leg, initial encounter; S80.822A Blister (nonthermal), left lower leg, initial encounter; S20.329A Blister (nonthermal) of unspecified front wall of thorax, initial encounter; X58.XXXA Exposure to other specified factors, initial encounter
CPT/HCPCS: 36415; 80053; 85025; 86803; 87389; 96374; 99285-25